=== PATIENT | female | born 1935 | race Caucasian/White ===

== ENCOUNTER 2016-12-01 08:01 | Inpatient (IN) | payer OTHER ==
[~2016-12-01] VITALS: Ht 154.9 cm; Wt 53.7 kg
[~2016-12-01 08:01] MED LIST: ASPI-232 PO; CINN1CAP2 PO; CYAN10005 PO; GLIP-197 PO; HYDR25TA5 PO; LOSA1TAB PO; PLN/10 PO; VITBC PO
[2016-12-01] MEDS ORDERED: CHOL1000 PO (08:24)
[2016-12-01] MEDS ORDERED: SODIUM CHLORIDE 0.9% 1000ML 1,000 ML IV STA (09:09)
--- NOTE | 2016-12-01 09:29 | DIAGNOSTIC IMAGING REPORT ---
CHEST ONE VIEW PORTABLE CLINICAL HISTORY: EVALUATE WEAKNESS dyspnea COMPARISON STUDY: 09/04/2013 FINDINGS: Unchanging left suprahilar nodularity. Lungs are considered clear. There are no focal infiltrates. Diaphragms smooth. IMPRESSION: No acute process. Chronic change. Electronically signed by: Rubens Aguillon M.D. 12/01/2016 9:27 AM Dictated Date/Time: 12/01/2016 9:26 AM
[2016-12-01 09:35] LABS: BASO % 0.6 %; BASO ABS # 0.02 K/uL (0-0.2); COMPLETE YES; EOS % 0.3 %; HEMATOCRIT 39.9 % (37-47); IG% 0.3 %; LYMPH % 12.5 %; LYMPH ABS # 0.41 K/uL (1.2-3.4); MEAN CELL VOLUME 86.4 fL (80-100); MEAN CORPUSCULAR HEMOGLOBIN 29.7 pg (25-34); MEAN CORPUSCULAR HGB CONC 34.3 g/dl (32-36); MEAN PLATELET VOLUME 9.7 fL (7.4-10.4); MONO % 16.8 %; NEUT % 69.5 %; PLATELET COUNT 160 K/uL (130-400); RED BLOOD COUNT 4.62 M/uL (4.2-5.4); WHITE BLOOD COUNT 3.28 K/uL (4.8-10.8)
[2016-12-01 09:43] LABS: INR 1.1 (0.9-1.1); PARTIAL THROMBOPLASTIN RATIO 1.1; PROTHROMBIN TIME (PATIENT) 11.3 SECONDS (9.0-12.0)
[2016-12-01 10:01] LABS: BUN/CREATININE RATIO 10.8 (10-20); CALCIUM 8.6 mg/dl (8.5-10.1); CREATININE 0.86 mg/dl (0.60-1.20); POTASSIUM 3.8 mmol/L (3.5-5.1)
[2016-12-01 10:13] LABS: CKMB/CK RATIO 2.1 (0-3.0); THYROID STIMULATING HORMONE 1.99 uIu/ml (0.300-4.500)
[2016-12-01] MEDS ORDERED: ASPIRIN 81 MG CHEW PO STA (10:17)
[2016-12-01 10:23] LABS: URINE APPEARANCE CLEAR (CLEAR); URINE BILIRUBIN NEG (NEG); URINE COLOR YELLOW; URINE NITRITE NEG (NEG); URINE PH 7.5 (4.5-7.5); URINE SPECIFIC GRAVITY 1.011 (1.000-1.030); UROBILINOGEN NEG (NEG)
[2016-12-01 10:28] LABS: MANUAL MICROSCOPIC REQUIRED? NO; REVIEW REQ? NO
[2016-12-01] MEDS ORDERED: OMEP20CA9 PO (10:59)
[2016-12-01] MEDS ORDERED: FELO5TAB PO (10:59)
[2016-12-01] MEDS ORDERED: NITROGLYCERIN 0.4 MG SL PER TAB CHARGE SL PRN (11:00)
[2016-12-01] MEDS ORDERED: ONDANSETRON INJ 2 MG/ML 2 ML VIAL IV PRN (11:00)
[2016-12-01] MEDS ORDERED: DEXTROSE 50% 50 ML SYR IV PRN (11:15)
[2016-12-01] MEDS ORDERED: GLUCAGON FOR INJ 1 MG VIAL SQ PRN (11:15)
[2016-12-01] MEDS ORDERED: GLUCOSE 10 TABS/TUBE PO PRN (11:15)
[2016-12-01] MEDS ORDERED: GLUCOSE 40% GEL 15 GM TUBE PO PRN (11:15)
--- NOTE | 2016-12-01 11:43 | History and Physical ---
History & Physical Date & Time of Service: Dec 01, 2016 at 11:14 Chief Complaint: Back And Neck Pain/ Below Ribs Primary Care Physician: Mary Oneill M.D. History of Present Illness Source: patient, family, clinic records, hospital records Patient seen and examined. 81 year old female with PMHx of DM2, HTN, CKD stage 3 , presents to the ED complaining of several episodes of upper back pain over the last 1-2 days. Patient reports she has been intermittently getting back pain between the shoulder blades. It would last for around a half hour and then resolved spontaneously. She reports it "just hurts" and rates the pain as a 6/ 10. This morning she had associated BL arm pain so she proceeded to the ED for further evaluation. By the time she arrived the pain had resolved and she is resting comfortably. She reports a chronic cough over the last year with worsening clear sputum production. She reports pain under her ribs. She denies fevers, chills, URI symptoms, chest pain, SOB, palpitations, nausea, vomiting, diarrhea, dysuria, calf pain, edema, dizziness, diaphoresis, syncope. She takes aspirin daily. She took all of her medications this morning. She denies history of CAD. In the ED VS are stable, EKG is nonischemic, CXR is negative. Troponin is 0.5. She received aspirin and is resting comfortably. She will be observed for further workup and treatment. Past Medical/Surgical History Medical Problems: (1) Benign hypertension Status: Chronic (2) CKD (chronic kidney disease), stage III Status: Chronic (3) Diabetes mellitus type 2 Status: Chronic (4) GERD (gastroesophageal reflux disease) Status: Chronic Surgical Problems: (1) H/O colonoscopy Status: Chronic (2) H/O wisdom tooth extraction Status: Chronic (3) History of tonsillectomy Status: Chronic Family History FH: cancer FH: heart disease FH: multiple endocrine neoplasia (MEN) syndrome Social History Smoking Status: Never Smoker Drug Use: none Marital Status: Housing status: lives with family Occupational Status: retired Immunizations History of Influenza Vaccine: No History of Tetanus Vaccine?: UTD History of Pneumococcal: Yes History of Hepatitis B Vaccine: Unknown Allergies Coded Allergies: Influenza Vaccine Live (Verified Allergy, Unknown, RASH, 12/01/16) Home Medications Scheduled Aspirin (Aspir-81), 81 MG PO DAILY Cholecalciferol (Vitamin D3), 1 TAB PO DAILY Cyanocobalamin (Vitamin B-12), 2,000 MCG PO DAILY Felodipine (Plendil Er), 1 TAB PO DAILY Glipizide (Glipizide Er), 5 MG PO DAILY Hydrochlorothiazide (Hydrochlorothiazide), 12.5 MG PO DAILY Losartan Potassium (Cozaar), 25 MG PO DAILY Omeprazole (Prilosec), 20 MG PO DAILY Vitamin B Complex (Vitamin B Complex), 1 TABLET PO DAILY Review of Systems See above for pertinent positives & negatives. A total of 10 systems reviewed and were otherwise negative. Physical Exam Vital Signs Date Time Temp Pulse Resp B/P Pulse Ox O2 Delivery O2 Flow Rate FiO2 12/01/16 10:25 92 25 146/76 95 Room Air 12/01/16 09:40 88 12/01/16 09:33 85 22 125/66 94 Room Air 12/01/16 09:31 94 Room Air 12/01/16 08:05 36.4 99 18 146/63 95 Room Air General Appearance: + pertinent finding (Pleasant WD/WN 81 year old female lying in bed in NAD with at bedside ) Head: normocephalic, atraumatic Eyes: PERRL, EOMI, sclerae normal ENT: hearing grossly normal, pharynx normal Neck: no adenopathy, no JVD Respiratory/Chest: chest non-tender, lungs clear, normal breath sounds, no respiratory distress, no accessory muscle use Cardiovascular: regular rate, rhythm, no edema, no gallop, no JVD, no murmur, normal peripheral pulses Abdomen/GI: normal bowel sounds, non tender, soft Back: normal inspection (nontender to palpation ), no CVA tenderness, no muscle spasm, normal range of motion Extremities/Musculoskelatal: no calf tenderness, normal capillary refill, no pedal edema Neurologic/Psych: alert, oriented x 3, + pertinent finding (no focal deficits ) Skin: normal color, warm/dry, no rash Lymphatic: no adenopathy Diagnostics Laboratory Results Results Past 24 Hours Test 12/01/16 09:20 Range/Units White Blood Count 3.28 4.8-10.8 K/uL Red Blood Count 4.62 4.2-5.4 M/uL Hemoglobin 13.7 12.0-16.0 g/dL Hematocrit 39.9 37-47 % Mean Corpuscular Volume 86.4 80-100 fL Mean Corpuscular Hemoglobin 29.7 25-34 pg Mean Corpuscular Hemoglobin Concent 34.3 32-36 g/dl Platelet Count 160 130-400 K/uL Mean Platelet Volume 9.7 7.4-10.4 fL Neutrophils (%) (Auto) 69.5 % Lymphocytes (%) (Auto) 12.5 % Monocytes (%) (Auto) 16.8 % Eosinophils (%) (Auto) 0.3 % Basophils (%) (Auto) 0.6 % Neutrophils # (Auto) 2.28 1.4-6.5 K/uL Lymphocytes # (Auto) 0.41 1.2-3.4 K/uL Monocytes # (Auto) 0.55 0.11-0.59 K/uL Eosinophils # (Auto) 0.01 0-0.5 K/uL Basophils # (Auto) 0.02 0-0.2 K/uL RDW Standard Deviation 42.6 36.4-46.3 fL RDW Coefficient of Variation 13.5 11.5-14.5 % Immature Granulocyte % (Auto) 0.3 % Immature Granulocyte # (Auto) 0.01 0.00-0.02 K/uL Prothrombin Time 11.3 9.0-12.0 SECONDS Prothromb Time International Ratio 1.1 0.9-1.1 Activated Partial Thromboplast Time 28.2 21.0-31.0 SECONDS Partial Thromboplastin Ratio 1.1 Urine Color YELLOW Urine Appearance CLEAR CLEAR Urine pH 7.5 4.5-7.5 Urine Specific [place] 1.011 1.000-1.030 Urine Protein NEG NEG Urine Glucose (UA) NEG NEG Urine Ketones 1+ NEG Urine Occult Blood NEG NEG Urine Nitrite NEG NEG Urine Bilirubin NEG NEG Urine Urobilinogen NEG NEG Urine Leukocyte Esterase TRACE NEG Urine WBC (Auto) 1-5 0-5 /hpf Urine RBC (Auto) 0-4 0-4 /hpf Urine Hyaline Casts (Auto) 0 0-5 /lpf Urine Epithelial Cells (Auto) 10-20 0-5 /lpf Urine Bacteria (Auto) 1+ NEG Sodium Level 131 136-145 mmol/L Potassium Level 3.8 3.5-5.1 mmol/L Chloride Level 95 98-107 mmol/L Carbon Dioxide Level 29 21-32 mmol/L Anion Gap 7.0 3-11 mmol/L Blood Urea Nitrogen 9 7-18 mg/dl Creatinine 0.86 0.60-1.20 mg/dl Est Creatinine Clear Calc Drug Dose 40.0 ml/min Estimated GFR () 74.5 Estimated GFR (Non- 64.3 BUN/Creatinine Ratio 10.8 10-20 Random Glucose 204 70-99 mg/dl Calcium Level 8.6 8.5-10.1 mg/dl Magnesium Level 2.0 1.8-2.4 mg/dl Total Bilirubin 0.4 0.2-1 mg/dl Direct Bilirubin 0.1 0-0.2 mg/dl Aspartate Amino Transf (AST/SGOT) 55 15-37 U/L Alanine Aminotransferase (ALT/SGPT) 55 12-78 U/L Alkaline Phosphatase 98 45-117 U/L Total Creatine Kinase 107 26-192 U/L Creatine Kinase MB 2.2 0.5-3.6 ng/ml Creatine Kinase MB Ratio 2.1 0-3.0 Troponin I 0.568 0-0.045 ng/ml Total Protein 6.6 6.4-8.2 gm/dl Albumin 3.4 3.4-5.0 gm/dl Lipase 215 73-393 U/L Thyroid Stimulating Hormone (TSH) 1.990 0.300-4.500 uIu/ml Microbiology Results 12/01/16 Urine Culture, Received Pending Diagnostic Radiology CXR Per radiologist read: IMPRESSION: No acute process. Chronic change. EKG NSR with PACs 80 BPm, RBBB, Qtc 470 Impression Assessment and Plan 81 year old female presents to the ED complaining of intermittent upper back pain x 2 days with radiation to BL arms. Troponin 0.5 ELEVATED TROPONIN -Observation in tele -Troponin 0.568, EKG nonischemic -Presents with pain between shoulder blades with radiation to BL arm -R/O ACS, r/o aortic dissection Risk factors: Age, DM2, HTN, family history -CT chest to r/o dissection -Serial Chidi, EKGs -Check Echo to r/o heart wall motion abnormality -Continue Aspirin daily -Nitro prn -Lipitor ordered for plaque stabilization -A1c, Lipid panel in AM -Cardiology consult for further input -CBC, PRP, Mg in AM DM2 -hold glipizide -update A1c -SSI coverage HTN -stable -continue Losartan, felodipine -monitor in tele CKD STAGE 3 -crea stable -follow PRP -avoid nephrotoxic agents as able GERD -continue PPI DVT PROPHYLAXIS: SCDs until CT is completed CODE STATUS: FULL CODE per my discussion with the patient DISPO:observation pending further workup Patient seen in collaboration with Dr. Seugndo ATTENDING ADDENDUM care coordinated with GLADYS Resendiz please refer to her notes for full details, I agree with her notes patient seen and examined, records reviewed by myself as well on exam, patient seen resting , sitting up in bed, comfortable denies back pain during the time of exam no chest pain, dyspnea, dizziness, nausea per patient's family, around 2 days ago, her HR was found to be in the 150s, but patient was apparently asymptomatic, systolic BP 140s no other symptoms VS noted and reviewed oriented x 3, not in distress, speaks in sentences with no effort nor accessory muscle use normal rate, regular rhythm, no murmurs clear breath sounds bilaterally back: no tenderness, swelling, warmth non distended, soft, nontender no bipedal edema, erythema, warmth no neuro deficits trop 0.5 Na 131 EKG: No signs of acute ischemia ASSESSMENT/PLAN> 81 year old female with history of DM, HTN presenting with upper back pain episodes and mild troponin elevation of 0.5 UPPER BACK PAIN R/O AORTIC DISSECTION CT angio IV fluids MILD TROPONIN ELEVATION EKG no acute ischemia check serial cardiac markers Echo EPISODE OF TACHYCARDIA per family, machine reading was 150s patient denies dizziness, palpitations, chest pain, dyspnea episodes monitor in Tele other diagnoses and plan of care as per GLADYS Segundo MD VTE Prophylaxis VTE Risk Assessment Done? Y/N: Yes Risk Level: Moderate
[2016-12-01] MEDS ORDERED: OPTIRAY 320 IV PRN (12:30)
--- NOTE | 2016-12-01 12:31 | DIAGNOSTIC IMAGING REPORT ---
Study: CT chest combination HISTORY: Chest pain FINDINGS: Pre and postcontrast administration evaluation of the pulmonary arterial vasculature as well as thoracic aorta shows mild atherosclerotic change. There is no evidence for aneurysm or dissection. There are no significant filling defects within the pulmonary arterial vasculature. There is moderate degenerative change of the thoracic spine. There is no compression deformity. Lungs are considered generally clear. Minimal basilar dependent atelectasis. IMPRESSION: 1. Minimal atherosclerotic change thoracic aorta.. 2. No evidence for aneurysm or dissection. 3. No evidence for pulmonary embolus. 4. Lungs are clear. Electronically signed by: Rubens Aguillon M.D. 12/01/2016 12:30 PM Dictated Date/Time: 12/01/2016 12:26 PM
[2016-12-01] MEDS ORDERED: IV FLUIDS COMPLETED PRN (12:45)
[2016-12-01 13:00] VITALS: BP 148/76; PULSE 77; TEMP 36.8; O2SAT 98; Ht 154.9 cm; Wt 53.7 kg
[2016-12-01] MEDS: ATORVASTATIN 40 MG TAB PO SCH (13:30)
--- NOTE | 2016-12-01 15:19 | EMERGENCY ROOM VISIT NOTE ---
History Report prepared by [place]: Bettina Magdaleno Under the Supervision of: Dr. Emil Petersen M.D. First contact with patient: 09:01 Chief Complaint: BACK PAIN Stated Complaint: BACK AND NECK PAIN/ BELOW RIBS History of Present Illness The patient is a 81 year old female who presents to the Emergency Room with complaints of intermittent upper back pain that began prior to arrival. She currently rates her discomfort as a 9/10 in severity. The patient states that her back pain comes and goes, and additionally notes abdominal pain. She states that she has noticed pain in her ribs and in between her shoulder blades as well. The patient states that she has had a persistent productive cough for the past several days. She states that she brings up thick white sputum. The patient states that eating worsens her cough. She notes bilateral arm pain. The patient denies any history of heart problems or pneumonia. Pt denies LOC, headache, fevers, chills, diaphoresis, visual changes, neck pain, chest pain, breathing difficulties, nausea, vomiting, melena, hematochezia, urinary symptoms , numbness, weakness, lymphadenopathy, rash, or other complaints. Source of History: patient Onset: prior to arrival Position: back (upper) Symptom Intensity: 9/10 Timing: intermittent Associated Symptoms: + abdominal pain, + cough Note: Associated Symptoms: rib pain, pain between shoulder blades, bilateral arm pain Review of Systems See HPI for pertinent positives and negatives. A total of ten systems were reviewed and were otherwise negative. Past Medical & Surgical Medical Problems: (1) Benign hypertension (2) CKD (chronic kidney disease), stage III (3) Diabetes mellitus type 2 (4) GERD (gastroesophageal reflux disease) Surgical Problems: (1) H/O colonoscopy (2) H/O wisdom tooth extraction (3) History of tonsillectomy Family History Patient reports no known family medical history. Social History Smoking Status: Never Smoker Alcohol Use: none Drug Use: none Marital Status: Housing Status: lives with family Occupation Status: retired Current/Historical Medications Scheduled Aspirin (Aspir-81), 81 MG PO DAILY Cholecalciferol (Vitamin D3), 1 TAB PO DAILY Cyanocobalamin (Vitamin B-12), 2,000 MCG PO DAILY Felodipine (Plendil Er), 1 TAB PO DAILY Glipizide (Glipizide Er), 5 MG PO DAILY Hydrochlorothiazide (Hydrochlorothiazide), 12.5 MG PO DAILY Losartan Potassium (Cozaar), 25 MG PO DAILY Omeprazole (Prilosec), 20 MG PO DAILY Vitamin B Complex (Vitamin B Complex), 1 TABLET PO DAILY Allergies Coded Allergies: Influenza Vaccine Live (Verified Allergy, Unknown, RASH, 12/01/16) Physical Exam Vital Signs Date Time Temp Pulse Resp B/P Pulse Ox O2 Delivery O2 Flow Rate FiO2 12/01/16 10:25 92 25 146/76 95 Room Air 12/01/16 09:40 88 12/01/16 09:33 85 22 125/66 94 Room Air 12/01/16 09:31 94 Room Air 12/01/16 08:05 36.4 99 18 146/63 95 Room Air Physical Exam GENERAL: Awake, alert, well-appearing, in no distress HENT: Normocephalic, atraumatic. Oropharynx unremarkable. EYES: Normal conjunctiva. Sclera non-icteric. NECK: Supple. No nuchal rigidity. FROM. No JVD. RESPIRATORY: Clear to auscultation. CARDIAC: Regular rate, normal rhythm. Extremities warm and well perfused. Pulses equal. ABDOMEN: Soft, non-distended. No tenderness to palpation. No rebound or guarding. No masses. RECTAL: Deferred. MUSCULOSKELETAL: Tender in right trapezius. Chest examination reveals no tenderness. The back is symmetrical on inspection without obvious abnormality. There is no CVA tenderness to palpation. No joint edema. LOWER EXTREMITIES: Calves are equal size bilaterally and non-tender. No edema. No discoloration. NEURO: Normal sensorium. No sensory or motor deficits noted. SKIN: No rash or jaundice noted. Medical Decision & Procedures ER Provider Diagnostic Interpretation: X-ray: Per my interpretation, radiologist review. CHEST ONE VIEW PORTABLE CLINICAL HISTORY: EVALUATE WEAKNESS dyspnea COMPARISON STUDY: 09/04/2013 FINDINGS: Unchanging left suprahilar nodularity. Lungs are considered clear. There are no focal infiltrates. Diaphragms smooth. IMPRESSION: No acute process. Chronic change. Electronically signed by: Rubens Aguillon M.D. 12/01/2016 9:27 AM Dictated Date/Time: 12/01/2016 9:26 AM Laboratory Results 12/01/16 09:20 Red Blood Count 4.62, Mean Corpuscular Volume 86.4, Mean Corpuscular Hemoglobin 29.7, Mean Corpuscular Hemoglobin Concent 34.3, Mean Platelet Volume 9.7, Neutrophils (%) (Auto) 69.5, Lymphocytes (%) (Auto) 12.5, Monocytes (%) (Auto) 16.8, Eosinophils (%) (Auto) 0.3, Basophils (%) (Auto) 0.6, Neutrophils # (Auto ) 2.28, Lymphocytes # (Auto) 0.41, Monocytes # (Auto) 0.55, Eosinophils # (Auto ) 0.01, Basophils # (Auto) 0.02 12/01/16 09:20 Test 12/01/16 09:20 White Blood Count 3.28 K/uL (4.8-10.8) Red Blood Count 4.62 M/uL (4.2-5.4) Hemoglobin 13.7 g/dL (12.0-16.0) Hematocrit 39.9 % (37-47) Mean Corpuscular Volume 86.4 fL (80-100) Mean Corpuscular Hemoglobin 29.7 pg (25-34) Mean Corpuscular Hemoglobin Concent 34.3 g/dl (32-36) Platelet Count 160 K/uL (130-400) Mean Platelet Volume 9.7 fL (7.4-10.4) Neutrophils (%) (Auto) 69.5 % Lymphocytes (%) (Auto) 12.5 % Monocytes (%) (Auto) 16.8 % Eosinophils (%) (Auto) 0.3 % Basophils (%) (Auto) 0.6 % Neutrophils # (Auto) 2.28 K/uL (1.4-6.5) Lymphocytes # (Auto) 0.41 K/uL (1.2-3.4) Monocytes # (Auto) 0.55 K/uL (0.11-0.59) Eosinophils # (Auto) 0.01 K/uL (0-0.5) Basophils # (Auto) 0.02 K/uL (0-0.2) RDW Standard Deviation 42.6 fL (36.4-46.3) RDW Coefficient of Variation 13.5 % (11.5-14.5) Immature Granulocyte % (Auto) 0.3 % Immature Granulocyte # (Auto) 0.01 K/uL (0.00-0.02) Prothrombin Time 11.3 SECONDS (9.0-12.0) Prothromb Time International Ratio 1.1 (0.9-1.1) Activated Partial Thromboplast Time 28.2 SECONDS (21.0-31.0) Partial Thromboplastin Ratio 1.1 Urine Color YELLOW Urine Appearance CLEAR (CLEAR) Urine pH 7.5 (4.5-7.5) Urine Specific [place] 1.011 (1.000-1.030) Urine Protein NEG (NEG) Urine Glucose (UA) NEG (NEG) Urine Ketones 1+ (NEG) Urine Occult Blood NEG (NEG) Urine Nitrite NEG (NEG) Urine Bilirubin NEG (NEG) Urine Urobilinogen NEG (NEG) Urine Leukocyte Esterase TRACE (NEG) Urine WBC (Auto) 1-5 /hpf (0-5) Urine RBC (Auto) 0-4 /hpf (0-4) Urine Hyaline Casts (Auto) 0 /lpf (0-5) Urine Epithelial Cells (Auto) 10-20 /lpf (0-5) Urine Bacteria (Auto) 1+ (NEG) Anion Gap 7.0 mmol/L (3-11) Est Creatinine Clear Calc Drug Dose 40.0 ml/min Estimated GFR () 74.5 Estimated GFR (Non- 64.3 BUN/Creatinine Ratio 10.8 (10-20) Calcium Level 8.6 mg/dl (8.5-10.1) Magnesium Level 2.0 mg/dl (1.8-2.4) Total Bilirubin 0.4 mg/dl (0.2-1) Direct Bilirubin 0.1 mg/dl (0-0.2) Aspartate Amino Transf (AST/SGOT) 55 U/L (15-37) Alanine Aminotransferase (ALT/SGPT) 55 U/L (12-78) Alkaline Phosphatase 98 U/L (45-117) Total Creatine Kinase 107 U/L (26-192) Creatine Kinase MB 2.2 ng/ml (0.5-3.6) Creatine Kinase MB Ratio 2.1 (0-3.0) Troponin I 0.568 ng/ml (0-0.045) Total Protein 6.6 gm/dl (6.4-8.2) Albumin 3.4 gm/dl (3.4-5.0) Lipase 215 U/L (73-393) Thyroid Stimulating Hormone (TSH) 1.990 uIu/ml (0.300-4.500) Laboratory results reviewed by me Medications Administered Medications (Trade) Dose Ordered Sig/Clark Route Start Time Stop Time Status Last Admin Dose Admin Sodium Chloride (Nss 1000ml) 1,000 ml @ 125 mls/hr Q8H STAT IV 12/01/16 09:09 12/01/16 13:16 DC 12/01/16 09:30 125 MLS/HR Aspirin (Aspirin Chew) 324 mg NOW STAT PO 12/01/16 10:17 12/01/16 10:18 DC 12/01/16 10:25 324 MG ECG Indication: abdominal pain, back/shoulder pain Rate (beats per minute): 80 Rhythm: sinus rhythm Findings: PAC, RBBB, no acute ischemic change, no ectopy ED Course 0908: The patient was evaluated in room B9. A complete history and physical exam was performed. 0909: Ordered Sodium Chloride 1000 ml @ 125 mls/hr IV. 1017: Ordered Aspirin 324 mg PO. 1018: I reevaluated the patient and she is resting comfortably. I discussed the exam findings with her and I discussed the treatment plan. She verbalized complete understanding and agreement. She will be evaluated for further treatment. 1020: I discussed the patients case with Brian Ricci PA-C. She is going to evaluate the patient for further treatment. Medical Decision Triage Nursing notes reviewed. The patient's presentation and history were concerning for back pain and arm pain Etiologies such as musculoskeletal, cardiac ischemia, aortic dissection, pulmonary embolism, pneumonia, pneumothorax, musculoskeletal, infections, gastrointestinal, as well as others were entertained. The patient was evaluated. She was pain-free. She had a cough. Her chest x- ray was unremarkable. ECG was nonischemic. Her CBC, chemistry panel, LFTs and lipase were negative. Her troponin was elevated. This was very concerning about possible myocardial ischemic event. The patient was given aspirin. She was hydrated. Consultation was made with internal medicine and she was evaluated for further treatment. The chart was completed utilizing [employer] voice recognition software. Grammatical errors, random word insertions, pronoun errors, and incomplete sentences are an occasional consequence of this system due to software limitations, ambient noise, and hardware issues. Any formal questions or concerns about the content, text, or information contained within the body of this dictation should be directly addressed to the physician for clarification. Consults Time Called: 1018 Consulting Physician: Brian Ricci PA-C Returned Call: 1020 I discussed the patients case with Brian Ricci PA-C. She is going to evaluate the patient for further treatment. Impression Primary Impression: Non-ST elevation WI (NSTEMI) Additional Impression: Back pain Scribe Attestation The scribe's documentation has been prepared under my direction and personally reviewed by me in its entirety. I confirm that the note above accurately reflects all work, treatment, procedures, and medical decision making performed by me. Departure Information Dispostion Being Evaluated By Hospitalist Referrals No Doctor, Assigned (PCP) Problem Qualifiers
[2016-12-01 15:43] VITALS: BP 132/69; PULSE 75; TEMP 37.3; O2SAT 96
[2016-12-01 16:34] LABS: CKMB/CK RATIO 1.8 (0-3.0)
[2016-12-01 20:00] VITALS: BP 143/76; PULSE 83; TEMP 37.5; O2SAT 96
--- NOTE | 2016-12-01 20:45 | Cardiology Consultation ---
Cardiology Consultation Date of Consultation: Dec 01, 2016 History of Present Illness Dilcia Ruiz is a 81-year-old female seen in cardiology consultation per the request: Astrid KANG for the evaluation of back discomfort and elevated troponin. The patient does not follow routinely with cardiology. She had been seen as an inpatient by Dr. Cheung and 2013 due to concerns of a mitral valve abnormality and very mild troponin elevation. She underwent an EGD to 2 history of esophageal stricture and then transesophageal echocardiogram which revealed mitral valve calcification without other significant abnormality. The patient describes that she was feeling well 2 days prior to admission she cleaned her house and her description it sounds as though she did a significant amount of physical exertion. That night she had mild back discomfort but was not too bad. The next day she did not feel any significant illness. The night prior to hospitalization she woke up at 2:30 in the morning with a severe back ache between her shoulder blades. Her family subsequent prompt her to go to the emergency department. Her initial vital signs performed on 12/01/16 at 8:05 AM revealed a blood pressure of 146/63. Her heart rate is 99 bpm. Her had checked her heart rate and blood pressure with a home blood pressure cuff and her blood pressure was relatively stable through the night. He did note that 2 of her heart rate readings however or up to the 150 beat per minute range. Due to the nature of her discomfort, she underwent a CT angiogram aortic dissection study that revealed no evidence of aortic aneurysm or dissection. No evidence of pulmonary embolism. Minimal atherosclerotic changes were noted in the thoracic aorta. I reviewed the images independently, and she does have diffuse coronary artery calcification noted on the noncontrast study. The patient was found to have a mild troponin elevation of 0.568 and 0.584 respectively with normal CPK and normal MB values. Additional troponin level is due at 2120 hrs. EKG on arrival revealed sinus rhythm with right bundle branch block, and a repeat tracing on 12/01/16 at 1754 revealed continued normal sinus rhythm with right bundle branch block. T-wave inversions were noted in leads V1 and V2. The right bundle branch block and T-wave inversion changes are chronic dating back to prior tracings from 2013. During my assessment the patient states that she felt well. She has had no additional back discomfort all day long. She denies any chest discomfort she denies shortness of breath she denies abdominal discomfort. History PAST MEDICAL HISTORY: 1. Hypertension 2. Chronic kidney disease 3. Type 2 diabetes mellitus 4. Gastroesophageal reflux disease PAST SURGICAL HISTORY: 1. Transesophageal echocardiogram performed in 2013 2. Esophagus she'll stricture with past EGD and dilatation 3. [place] tooth extraction 4. Tonsillectomy is variable FAMILY HISTORY: Family history of heart disease with her father having had heart disease but she does not have the details SOCIAL HISTORY: She is a nonsmoker, she lives through family, she is retired Review Of Systems See above for pertinent positives & negatives. A total of 10 systems reviewed and were otherwise negative. Allergies Coded Allergies: Influenza Vaccine Live (Verified Allergy, Unknown, RASH, 12/01/16) Medications Reported Home Medications Medications Dose Route/Sig Max Daily Dose Days Date Category Plendil Er (Felodipine) 5 Mg Tab 1 Tab PO DAILY 30 12/01/16 Reported Prilosec (Omeprazole) 20 Mg Cap 20 Mg PO DAILY 12/01/16 Reported Vitamin D3 (Cholecalciferol) 1,000 Unit Tab 1 Tab PO DAILY 90 12/01/16 Reported Glipizide Er (Glipizide) 5 Mg Tab 5 Mg PO DAILY 07/05/14 Reported Hydrochlorothiazide 25 Mg Tab 12.5 Mg PO DAILY 07/05/14 Reported Vitamin B Complex 1 Tab Tab 1 Tablet PO DAILY 06/04/13 Reported Vitamin B-12 (Cyanocobalamin) 1,000 Mcg Tab 2,000 Mcg PO DAILY 06/04/13 Reported Aspir-81 (Aspirin) 81 Mg Tab 81 Mg PO DAILY 06/04/13 Reported Cozaar (Losartan Potassium) 25 Mg Tab 25 Mg PO DAILY 06/04/13 Reported Physical Exam Vital Signs (Last 8hrs): Last 8 Hrs Date Time Temp Pulse Resp B/P Pulse Ox O2 Delivery O2 Flow Rate FiO2 12/01/16 20:00 Room Air 12/01/16 20:00 37.5 83 18 143/76 96 Room Air 12/01/16 16:00 Room Air 12/01/16 15:43 37.3 75 20 132/69 96 Room Air 12/01/16 13:00 36.8 77 16 148/76 98 Room Air 12/01/16 12:53 75 22 144/76 97 General Appearance: Alert and Oriented x3. NAD. Head: Normocephalic Atraumatic. Eyes: PERRLA, EOMI, conjunctiva and sclera clear Neck: Supple. No carotid bruits noted. No JVD. No HJD. Respiratory: Breath sounds clear to auscultation bilaterally. No w/r/r. Cardiovascular: Reg rate and rhythm. S1 and S2 noted. No murmurs, rubs, gallops. PMI non displace. Abdomen: Normal bowel sounds, soft nontender. no abdominal bruits. Extremities: No edema, no clubbing or cyanosis. distal pulses 2/4 bilaterally. Neuro: No focal deficits. Psychiatric: Normal affect. Data Last 24 Hours Test 12/01/16 09:20 12/01/16 15:35 12/01/16 16:43 White Blood Count 3.28 K/uL Red Blood Count 4.62 M/uL Hemoglobin 13.7 g/dL Hematocrit 39.9 % Mean Corpuscular Volume 86.4 fL Mean Corpuscular Hemoglobin 29.7 pg Mean Corpuscular Hemoglobin Concent 34.3 g/dl Platelet Count 160 K/uL Mean Platelet Volume 9.7 fL Neutrophils (%) (Auto) 69.5 % Lymphocytes (%) (Auto) 12.5 % Monocytes (%) (Auto) 16.8 % Eosinophils (%) (Auto) 0.3 % Basophils (%) (Auto) 0.6 % Neutrophils # (Auto) 2.28 K/uL Lymphocytes # (Auto) 0.41 K/uL Monocytes # (Auto) 0.55 K/uL Eosinophils # (Auto) 0.01 K/uL Basophils # (Auto) 0.02 K/uL RDW Standard Deviation 42.6 fL RDW Coefficient of Variation 13.5 % Immature Granulocyte % (Auto) 0.3 % Immature Granulocyte # (Auto) 0.01 K/uL Prothrombin Time 11.3 SECONDS Prothromb Time International Ratio 1.1 Activated Partial Thromboplast Time 28.2 SECONDS Partial Thromboplastin Ratio 1.1 Urine Color YELLOW Urine Appearance CLEAR Urine pH 7.5 Urine Specific [place] 1.011 Urine Protein NEG Urine Glucose (UA) NEG Urine Ketones 1+ Urine Occult Blood NEG Urine Nitrite NEG Urine Bilirubin NEG Urine Urobilinogen NEG Urine Leukocyte Esterase TRACE Urine WBC (Auto) 1-5 /hpf Urine RBC (Auto) 0-4 /hpf Urine Hyaline Casts (Auto) 0 /lpf Urine Epithelial Cells (Auto) 10-20 /lpf Urine Bacteria (Auto) 1+ Sodium Level 131 mmol/L Potassium Level 3.8 mmol/L Chloride Level 95 mmol/L Carbon Dioxide Level 29 mmol/L Anion Gap 7.0 mmol/L Blood Urea Nitrogen 9 mg/dl Creatinine 0.86 mg/dl Est Creatinine Clear Calc Drug Dose 40.0 ml/min Estimated GFR () 74.5 Estimated GFR (Non- 64.3 BUN/Creatinine Ratio 10.8 Random Glucose 204 mg/dl Calcium Level 8.6 mg/dl Magnesium Level 2.0 mg/dl Total Bilirubin 0.4 mg/dl Direct Bilirubin 0.1 mg/dl Aspartate Amino Transf (AST/SGOT) 55 U/L Alanine Aminotransferase (ALT/SGPT) 55 U/L Alkaline Phosphatase 98 U/L Total Creatine Kinase 107 U/L 125 U/L Creatine Kinase MB 2.2 ng/ml 2.2 ng/ml Creatine Kinase MB Ratio 2.1 1.8 Troponin I 0.568 ng/ml 0.584 ng/ml Total Protein 6.6 gm/dl Albumin 3.4 gm/dl Lipase 215 U/L Thyroid Stimulating Hormone (TSH) 1.990 uIu/ml Bedside Glucose 126 mg/dl Imaging: CT as summarized in history of present illness EKG: As outlined in history of present illness Telemetry reviewed: Sinus rhythm Assessment & Plan Impression: 81-year-old female Midline back discomfort. Her troponin is mildly elevated with no acute EKG changes and she has had no ongoing symptoms. Is difficult to distinguish if she has had an episode of muscular skeletal back pain from overdoing it with her cleaning or if this was an anginal equivalent or She notes no exertional symptoms when she was doing her heavy cleaning. Her blood pressure appears stable and she arrived, but she did have hours of nagging discomfort. CT angiogram has excluded aortic dissection and pulmonary embolism, she does have significant coronary artery atherosclerosis. Recommendations: Continue to trend cardiac enzymes. Patient made nothing by mouth after midnight tonight, and depending upon how she feels and how her blood tests trend , will determine with the most prudent course of action is terms of further workup for myocardial ischemia either pharmacologic stress testing or cardiac catheterization. Recommend statin therapy given coronary atherosclerosis noted on CT.
[2016-12-01] MEDS ORDERED: HEPARIN SOD 5000 UNIT/0.5 ML CARP SQ SCH (21:00)
[2016-12-01] MEDS: INSULIN ASPART 100 UNITS/ML 3 ML PEN SC SCH ×2 (21:19→21:20)
[2016-12-01 22:44] LABS: CKMB/CK RATIO 1.1 (0-3.0)
[2016-12-01 23:47] VITALS: BP 148/71; PULSE 100; TEMP 38.2; O2SAT 95
[2016-12-01] MEDS: ACETAMINOPHEN 325 MG TAB PO PRN (23:54)
[2016-12-02 04:25] VITALS: BP 125/68; PULSE 56; TEMP 36.9; O2SAT 95
[2016-12-02 06:45] LABS: HEMATOCRIT 44.8 % (37-47); MEAN CELL VOLUME 85.5 fL (80-100); MEAN CORPUSCULAR HEMOGLOBIN 28.4 pg (25-34); MEAN CORPUSCULAR HGB CONC 33.3 g/dl (32-36); MEAN PLATELET VOLUME 9.9 fL (7.4-10.4); PLATELET COUNT 178 K/uL (130-400); RED BLOOD COUNT 5.24 M/uL (4.2-5.4); WHITE BLOOD COUNT 2.86 K/uL (4.8-10.8)
[2016-12-02] MEDS: INSULIN ASPART 100 UNITS/ML 3 ML PEN SC SCH ×4 (07:00→21:00)
[2016-12-02 07:23] LABS: BUN/CREATININE RATIO 15.1 (10-20); CALCIUM 8.7 mg/dl (8.5-10.1); CREATININE 0.98 mg/dl (0.60-1.20); MAGNESIUM 2.3 mg/dl (1.8-2.4); POTASSIUM 3.5 mmol/L (3.5-5.1)
[2016-12-02] MEDS ORDERED: PERFLUTREN LIPID MICROSPHERE (DEFINITY) IV ONE (07:25)
[2016-12-02 07:26] LABS: CHOLESTEROL/HDL RATIO 3.2
[2016-12-02 07:28] LABS: ESTIMATED AVERAGE GLUCOSE 157 mg/dl; HA1C FLAG Normal (Normal)
[2016-12-02] MEDS: ASPIRIN 81 MG ECTAB PO SCH (07:45)
[2016-12-02] MEDS: ATORVASTATIN 40 MG TAB PO SCH (07:45)
[2016-12-02] MEDS: CYANOCOBALAMIN 500 MCG TAB (VIT B-12) PO SCH (07:46)
[2016-12-02] MEDS: LOSARTAN POTASSIUM 25 MG TAB PO SCH (07:46)
[2016-12-02] MEDS: PANTOprazole SOD 40 MG TAB PO SCH (07:46)
[2016-12-02] MEDS: VITAMIN B COMPLEX TAB PO SCH (07:46)
[2016-12-02] MEDS: CHOLECALCIFEROL 1000 INTER.UNIT TAB PO SCH (07:47)
[2016-12-02] MEDS: FELODIPINE 5 MG TABCR PO SCH (07:48)
[2016-12-02] MEDS ORDERED: METOPROLOL TARTRATE 1 MG/ML VIAL IV STA (08:11)
[2016-12-02] MEDS ORDERED: METOPROLOL TARTRATE 1 MG/ML VIAL ONE (08:20)
[2016-12-02 08:56] VITALS: BP 123/77; PULSE 73; TEMP 37
--- NOTE | 2016-12-02 08:59 | Progress Note ---
Internal Med Progress Note Date of Service: Dec 02, 2016. Provider Documentation: SUBJECTIVE: Patient is seen and examined at bedside. Patient had Afib noted this morning but is asymptomatic. Denies any chest pain, palpitations, dizziness, nausea, SOB. Denies any history of bleeding. Offers no complaints. OBJECTIVE: Vital Signs-as noted below Physical Exam: General Appearance:Moderately built and nourished, no apparent distress Head: normocephalic, Atraumatic Eyes: normal inspection, EOMI, PERRLA Neck: supple, Trachea midline Respiratory/Chest: Normal breath sounds, CTA Cardiovascular: Irregularly Irregular, No murmur Abdomen/GI:Soft, Non tender, Bowel sounds present Extremities/Musculoskelatal:normal inspection, no edema Neurologic/Psych:AAOX3, grossly no focal neurological deficits Skin: normal color, warm Lab data as noted below. ASSESSMENT & PLAN: Afib with RVR: Presents with pain between shoulders radiating to bilateral arms No known history of afib Elevated troponin likely secondary to Afib CHADVASC2 score:5 S/P IV Lopressor, currently rate controlled Start IV heparin EKG: No signs of ischemia ECHO pending CT angiogram: No aortic dissection/PE but has severe CAD Appreciate Cardiology input ELEVATED TROPONIN CT angio: Severe CAD Troponin 0.568, EKG No signs of Ischemia ECHO: pending Continue Aspirin, Lipitor May need stress test Cardiology on board UTI Gram Negative bacilli on UA FU cultures Start on IV ceftriaxone Positive Influenza A: Start Tamiflu # 1/5 for 5 days DM II Hold glipizide A1c:7.1 ISS, accu checks while hospitalized HTN stable continue Losartan, felodipine Monitor CKD III Cr stable Monitor renal function Avoid nephrotoxic agents as able GERD continue PPI DVT PX: On IV heparin CODE STATUS: FULL CODE DISPOSITION: Continue monitoring in Telemetry Vital Signs: Date Time Temp Pulse Resp B/P Pulse Ox O2 Delivery O2 Flow Rate FiO2 12/02/16 12:29 37.8 65 16 107/49 95 Room Air 12/02/16 12:00 Room Air 12/02/16 08:56 37.0 73 20 123/77 Room Air 12/02/16 08:22 168 12/02/16 08:00 Room Air 12/02/16 04:25 36.9 56 18 125/68 95 Room Air 12/02/16 04:00 Room Air 12/02/16 00:00 Room Air 12/01/16 23:47 38.2 100 18 148/71 95 Room Air 12/01/16 20:00 Room Air 12/01/16 20:00 37.5 83 18 143/76 96 Room Air 12/01/16 16:00 Room Air 12/01/16 15:43 37.3 75 20 132/69 96 Room Air Lab Results: Results Past 24 Hours Test 12/01/16 15:35 12/01/16 16:43 12/01/16 20:42 12/01/16 21:40 Range/Units Total Creatine Kinase 125 140 26-192 U/L Creatine Kinase MB 2.2 1.5 0.5-3.6 ng/ml Creatine Kinase MB Ratio 1.8 1.1 0-3.0 Troponin I 0.584 0.532 0-0.045 ng/ml Bedside Glucose 126 120 70-90 mg/dl Test 12/02/16 06:10 12/02/16 07:03 12/02/16 09:33 12/02/16 10:45 Range/Units White Blood Count 2.86 4.44 4.8-10.8 K/uL Red Blood Count 5.24 4.91 4.2-5.4 M/uL Hemoglobin 14.9 14.4 12.0-16.0 g/dL Hematocrit 44.8 42.0 37-47 % Mean Corpuscular Volume 85.5 85.5 80-100 fL Mean Corpuscular Hemoglobin 28.4 29.3 25-34 pg Mean Corpuscular Hemoglobin Concent 33.3 34.3 32-36 g/dl RDW Standard Deviation 42.5 42.7 36.4-46.3 fL RDW Coefficient of Variation 13.6 13.6 11.5-14.5 % Platelet Count 178 157 130-400 K/uL Mean Platelet Volume 9.9 9.8 7.4-10.4 fL Sodium Level 134 136-145 mmol/L Potassium Level 3.5 3.5-5.1 mmol/L Chloride Level 97 98-107 mmol/L Carbon Dioxide Level 29 21-32 mmol/L Anion Gap 8.0 3-11 mmol/L Blood Urea Nitrogen 15 7-18 mg/dl Creatinine 0.98 0.60-1.20 mg/dl Est Creatinine Clear Calc Drug Dose 35.1 ml/min Estimated GFR () 63.6 Estimated GFR (Non- 54.9 BUN/Creatinine Ratio 15.1 10-20 Random Glucose 83 70-99 mg/dl Estimated Average Glucose 157 mg/dl Hemoglobin A1c 7.1 4.5-5.6 % Calcium Level 8.7 8.5-10.1 mg/dl Magnesium Level 2.3 1.8-2.4 mg/dl Triglycerides Level 126 0-150 mg/dl Cholesterol Level 154 0-200 mg/dl HDL Cholesterol 48 mg/dl LDL Cholesterol, Calculated 81 mg/dl VLDL Cholesterol, Calculated 25 mg/dl Cholesterol/HDL Ratio 3.2 Bedside Glucose 71 70-90 mg/dl Prothrombin Time 11.0 9.0-12.0 SECONDS Prothromb Time International Ratio 1.0 0.9-1.1 Activated Partial Thromboplast Time 31.1 21.0-31.0 SECONDS Partial Thromboplastin Ratio 1.2 Influenza Type A (RT-PCR) POS for Influ A NEG Influenza Type B (RT-PCR) Neg for Influ B NEG
[2016-12-02] MEDS ORDERED: POTASSIUM CHLORIDE 10 MEQ TABCR PO ONE (09:00)
--- NOTE | 2016-12-02 09:05 | ECHOCARDIOGRAM REPORT ---
*NOTICE TO RECEIVING [employer]ENCY This information is strictly Confidential and protected under [place] law. [place] law prohibits you from making any further disclosure of this information unless further disclosure is expressly permitted by the written consent of the person to whom it pertains or is authorized by law. A general authorization for the release of medical or other information is not sufficient for this purpose. Hospital accepts no responsibility if the information is made available to any other person, INCLUDING THE PATIENT. Interpretation Summary * Name: LUIS MANDEL Study Date: 12/02/2016 06:56 AM BP: 125/68 mmHg * Patient Location: C.2T\S\S232\S\1 HR: 82 * : 1935 (M/d/yyyy) Gender: Female Height: 61 in * Age: 81 yrs Ethnicity: [place] Weight: 117 lb * Ordering Physician: Rain Resendiz * Referring Physician: Self, Referred * Performed By: Harper Ackerman RCS * * Reason For Study: ELEVATED TROPONIN / BACK PAIN * BSA: 1.5 m2 * -- Conclusions -- * The left ventricular wall motion is normal. * The left ventricular cavity is small. * There is severe concentric left ventricular hypertrophy. * The LV Ejection Fraction = 65-70%. * Grade I diastolic dysfunction, (abnormal relaxation pattern). * There is severe mitral annular calcification. * There is a small to moderate loculated anterior and right lateral pericardial effusion. * There is no echocardiographic evidence of tamponade. Procedure Details * A complete two-dimensional transthoracic echocardiogram was performed (2D, M-mode, Doppler and color flow Doppler). * The study was technically difficult. * A contrast injection of Definity was performed to improve assessment of LV function. * Contrast was injected into an intravenous site in the right arm. * One vial of Definity ultrasound contrast was diluted in normal saline to a total volume of 10 ml. A total of '2' ml of solution was administered during imaging. * Lot # [id number] of Definity utilized for procedure. * Expiration date DEC 20. Left Ventricle * The left ventricular cavity is small. * There is severe concentric left ventricular hypertrophy. * Left ventricular systolic function is normal. * Ejection Fraction = 65-70%. * The left ventricular wall motion is normal. Right Ventricle * The right ventricle is normal in size and function. Atria * The left atrial size is normal. * Right atrial size is normal. * There is no evidence of atrial septal defect, but resolution does not allow assessment for a patent foramen ovale. Mitral Valve * There is severe mitral annular calcification. * There is no mitral valve stenosis. * Significant mitral regurgitation is absent. Tricuspid Valve * The tricuspid valve is normal. * There is no tricuspid stenosis. * Significant tricuspid regurgitation is absent. Aortic Valve * The aortic valve is not well visualized. * Aortic stenosis is absent. * There is no significant aortic regurgitation. Pulmonic Valve * The pulmonary valve is not well seen, but the Doppler examination is normal without significant regurgitation or stenosis. Great Vessels * The aortic root and proximal ascending aorta are normal sized. Pericardium/Pleural * There is a small lto moderate loculated anterior and right lateral pericardial effusion. Great Vessels * Normal inferior vena cava diameter and respiratory variation suggests normal central venous pressure. * Normal inferior vena cava size and collapsability with sniff indicates a normal right atrial pressure of 3 mmHg Left Ventricular Diastolic Function * Grade I diastolic dysfunction, (abnormal relaxation pattern). MMode 2D Measurements and Calculations IVSd 1.7 cm IVSs 1.9 cm LVIDd 3.2 cm LVIDs 2.7 cm LVPWd 1.5 cm LVPWs 1.3 cm IVS/LVPW 1.1 FS 14.0 % EDV(Teich) 39.8 ml ESV(Teich) 27.5 ml EF(Teich) 30.9 % EDV(cubed) 31.6 ml ESV(cubed) 20.1 ml EF(cubed) 36.4 % % IVS thick 11.5 % % LVPW thick -12.25 % LV mass(C)d 189.1 grams LV mass(C)dI 125.7 grams/m\S\2 LV mass(C)s 157.8 grams LV mass(C)sI 104.9 grams/m\S\2 SV(Teich) 12.3 ml SI(Teich) 8.2 ml/m\S\2 SV(cubed) 11.5 ml SI(cubed) 7.7 ml/m\S\2 LVOT diam 1.9 cm LVOT area 2.9 cm\S\2 Doppler Measurements and Calculations MV E max thor 82.5 cm/sec MV A max thor 111.1 cm/sec MV E/A 0.74 MV P1/2t max thor 97.7 cm/sec MV P1/2t 98.7 msec MVA(P1/2t) 2.2 cm\S\2 MV dec slope 290.1 cm/sec\S\2 MV dec time 0.35 sec Ao V2 max 137.7 cm/sec Ao max PG 7.6 mmHg Ao max PG (full) 4.9 mmHg ANNY(V,A) 1.7 cm\S\2 ANNY(V,D) 1.7 cm\S\2 LV V1 max PG 2.7 mmHg LV V1 max 82.0 cm/sec PA V2 max 163.6 cm/sec PA max PG 10.7 mmHg
[2016-12-02] MEDS ORDERED: AMIODARONE IV BOLUS / DRIP IV STA (09:17)
[2016-12-02 09:51] LABS: MEAN CELL VOLUME 85.5 fL (80-100); MEAN CORPUSCULAR HEMOGLOBIN 29.3 pg (25-34); MEAN PLATELET VOLUME 9.8 fL (7.4-10.4); PLATELET COUNT 157 K/uL (130-400); RED BLOOD COUNT 4.91 M/uL (4.2-5.4); WHITE BLOOD COUNT 4.44 K/uL (4.8-10.8)
[2016-12-02 09:55] LABS: MEAN CORPUSCULAR HGB CONC 34.3 g/dl (32-36)
[2016-12-02] MEDS: HEPARIN 25,000 UNIT/500ML D5W 500 ML IV PRN ×2 (10:00→18:28)
[2016-12-02] MEDS ORDERED: AMIODARONE / D5W 100 ML IV SCH (10:00)
[2016-12-02 10:01] LABS: PARTIAL THROMBOPLASTIN RATIO 1.2
[2016-12-02] MEDS ORDERED: AMIODARONE / D5W 200 ML IV SCH ×2 (10:15→16:15)
[2016-12-02 12:29] VITALS: BP 107/49; PULSE 65; TEMP 37.8; O2SAT 95
[2016-12-02] MEDS ORDERED: METOPROLOL TARTRATE 25 MG TAB PO ONE (12:51)
--- NOTE | 2016-12-02 12:51 | Cardiology Follow-Up ---
Subjective General Date of Service: Dec 02, 2016. Chief Complaint: follow up elevated troponin, new AF Pt evaluation today including: conversation w/ patient, conversation w/ family , physical exam History of Present Illness The patient is a 81 year old female seen in cardiology follow-up. Patient was noted to have atrial fibrillation with rapid ventricular rate this morning. She had no symptoms the exception of a sensation of dizziness. She continues to have a cough which per the family description when I discussed it with them last night was a chronic issue and not new. She received 5 mg of IV metoprolol but remained in atrial fibrillation I therefore ordered an amiodarone infusion. The patient has since converted from atrial fibrillation with rapid ventricular rate to sinus rhythm at 10:27 AM on 11/22/16. At present, sinus rhythm at 60 bpm as noted on telemetry. EKG this morning revealed sinus rhythm at 74 bpm with right bundle branch block. Allergies Coded Allergies: Influenza Vaccine Live (Verified Allergy, Unknown, RASH, 12/01/16) Social History Smoking Status: Never Smoker Hx Tobacco Use In Past Year?: No Hx Alcohol Use - Type And Amou: No Hx Substance Use - Type And Am: No Problem List Medical Problems: (1) Back pain Status: Acute (2) Non-ST elevation AK (NSTEMI) Status: Acute Physical Exam Vital Signs Last Vital Signs Documentation Date Time Temp Pulse Resp B/P Pulse Ox O2 Delivery O2 Flow Rate FiO2 12/02/16 12:29 37.8 65 16 107/49 95 Room Air Physical Exam Constitutional: Level of Distress: NAD Neck: supple Lungs: Auscultation: no wheezing, no rales/crackles Cardiovascular: Heart Auscultation: RRR, no murmurs Extremities: no edema Neurologic: Gait & Station: pertinent finding (no focal neuro deficits ) Assessment and Plan Assessment and Plan Summary transthoracic echocardiogram performed today 12/02/16 and reviewed independently by the undersigned: * -- Conclusions -- * The left ventricular wall motion is normal. * The left ventricular cavity is small. * There is severe concentric left ventricular hypertrophy. * The LV Ejection Fraction = 65-70%. * Grade I diastolic dysfunction, (abnormal relaxation pattern). * There is severe mitral annular calcification. * There is a small to moderate loculated anterior and right lateral pericardial effusion. * There is no echocardiographic evidence of tamponade. Impression: 1. Newly recognized paroxysmal atrial fibrillation, rapid ventricular rate 2. Underlying history of chronic right bundle branch block 3. Echocardiographic findings including normal to hyperdynamic LV systolic dysfunction with severe concentric left ventricular hypertrophy Discussion/recommendations: In retrospect, perhaps her back pain was musculoskeletal from having performed physical exertion with her housecleaning. She then developed discomfort. Her had taken her blood pressure at home and noted that her heart rate was 150 at one point and then 85 on the next blood pressure reading. I would speculate that she was having episodes of atrial fibrillation with rapid ventricular rate without subjective palpitations and that this explains her mildly elevated troponin I especially in light of her echocardiographic findings of severe concentric left ventricular hypertrophy and normal to hyperdynamic LV systolic dysfunction. At present, would recommend rhythm control strategy. We'll continue IV amiodarone for now with plans to potentially transitioning to oral amiodarone tomorrow. A heparin infusion has been started for stroke prophylaxis. Coumadin is to be started, 5 mg by mouth daily starting today. Start low-dose metoprolol. Dr. Kasper to assume rounding on 12/03/16. Laboratory Results Last 24 Hours Test 12/01/16 15:35 12/01/16 16:43 12/01/16 20:42 12/01/16 21:40 Total Creatine Kinase 125 U/L 140 U/L Creatine Kinase MB 2.2 ng/ml 1.5 ng/ml Creatine Kinase MB Ratio 1.8 1.1 Troponin I 0.584 ng/ml 0.532 ng/ml Bedside Glucose 126 mg/dl 120 mg/dl Test 12/02/16 06:10 12/02/16 07:03 12/02/16 09:33 12/02/16 10:45 White Blood Count 2.86 K/uL 4.44 K/uL Red Blood Count 5.24 M/uL 4.91 M/uL Hemoglobin 14.9 g/dL 14.4 g/dL Hematocrit 44.8 % 42.0 % Mean Corpuscular Volume 85.5 fL 85.5 fL Mean Corpuscular Hemoglobin 28.4 pg 29.3 pg Mean Corpuscular Hemoglobin Concent 33.3 g/dl 34.3 g/dl RDW Standard Deviation 42.5 fL 42.7 fL RDW Coefficient of Variation 13.6 % 13.6 % Platelet Count 178 K/uL 157 K/uL Mean Platelet Volume 9.9 fL 9.8 fL Sodium Level 134 mmol/L Potassium Level 3.5 mmol/L Chloride Level 97 mmol/L Carbon Dioxide Level 29 mmol/L Anion Gap 8.0 mmol/L Blood Urea Nitrogen 15 mg/dl Creatinine 0.98 mg/dl Est Creatinine Clear Calc Drug Dose 35.1 ml/min Estimated GFR () 63.6 Estimated GFR (Non- 54.9 BUN/Creatinine Ratio 15.1 Random Glucose 83 mg/dl Estimated Average Glucose 157 mg/dl Hemoglobin A1c 7.1 % Calcium Level 8.7 mg/dl Magnesium Level 2.3 mg/dl Triglycerides Level 126 mg/dl Cholesterol Level 154 mg/dl HDL Cholesterol 48 mg/dl LDL Cholesterol, Calculated 81 mg/dl VLDL Cholesterol, Calculated 25 mg/dl Cholesterol/HDL Ratio 3.2 Bedside Glucose 71 mg/dl Prothrombin Time 11.0 SECONDS Prothromb Time International Ratio 1.0 Activated Partial Thromboplast Time 31.1 SECONDS Partial Thromboplastin Ratio 1.2
[2016-12-02 13:09] LABS: INFLUENZA B PCR Neg for Influ B (NEG)
[2016-12-02 13:12] LABS: INFLUENZA A PCR POS for Influ A (NEG)
[2016-12-02] MEDS ORDERED: OSELTAMIVIR PHOSPHATE 75 MG CAP PO ONE (13:45)
[2016-12-02] MEDS: CEFTRIAXONE SOD INJ 1 GM in DEXTROSE 5% ADD-VANTAGE 50ML 50 ML IV SCH (14:43)
[2016-12-02] MEDS ORDERED: POLYETHYLENE (MIRALAX) 17 GM PACK ONE (14:56)
[2016-12-02] MEDS ORDERED: NURSING VERBAL MED ORDER ONE (15:00)
[2016-12-02] MEDS ORDERED: POLYETHYLENE (MIRALAX) 17 GM PACK PO PRN (15:00)
[2016-12-02 15:38] VITALS: BP 131/74; PULSE 61; TEMP 37.2; O2SAT 97
[2016-12-02 16:35] LABS: PARTIAL THROMBOPLASTIN RATIO 5.1
--- NOTE | 2016-12-02 16:37 | Cardiology Progress Note ---
Cardiology Progress Note Date of Service Dec 02, 2016. Cardiology Progress Note Sinus bradycardia in the 45 bpm range noted by nursing. Plan: DC amiodarone infusion. Continue low dose metoprolol as started earlier today. Start amiodarone 200 mg BID.
[2016-12-02] MEDS: WARFARIN SOD 5 MG TAB PO SCH (18:07)
[2016-12-02 19:19] VITALS: BP 116/69; PULSE 61; TEMP 38.3; O2SAT 94
[2016-12-02] MEDS: ACETAMINOPHEN 325 MG TAB PO PRN (19:38)
[2016-12-02] MEDS: METOPROLOL TARTRATE 25 MG TAB PO SCH (20:41)
[2016-12-02] MEDS: OSELTAMIVIR PHOSPHATE 75 MG CAP PO SCH (21:31)
[2016-12-02] MEDS: AMIODARONE 200 MG TAB PO SCH (21:32)
[2016-12-02 23:30] VITALS: BP 122/62; PULSE 54; TEMP 36.4; O2SAT 96
[2016-12-03 02:40] LABS: PARTIAL THROMBOPLASTIN RATIO 8.7
[2016-12-03 04:31] VITALS: BP 107/64; PULSE 63; TEMP 37.5; O2SAT 94
[2016-12-03 05:04] LABS: PARTIAL THROMBOPLASTIN RATIO 3.4
[2016-12-03] MEDS: INSULIN ASPART 100 UNITS/ML 3 ML PEN SC SCH ×4 (07:00→21:10)
[2016-12-03 08:05] LABS: BASO % 0.3 %; BASO ABS # 0.01 K/uL (0-0.2); COMPLETE YES; EOS % 0.3 %; HEMATOCRIT 40.1 % (37-47); IG% 0.3 %; LYMPH % 25.2 %; LYMPH ABS # 0.76 K/uL (1.2-3.4); MEAN CELL VOLUME 85.5 fL (80-100); MEAN CORPUSCULAR HGB CONC 33.9 g/dl (32-36); MEAN PLATELET VOLUME 10.2 fL (7.4-10.4); MONO % 16.9 %; PLATELET COUNT 153 K/uL (130-400); RED BLOOD COUNT 4.69 M/uL (4.2-5.4); WHITE BLOOD COUNT 3.02 K/uL (4.8-10.8)
[2016-12-03 08:22] VITALS: BP 117/66; PULSE 61; TEMP 37.2; O2SAT 94
[2016-12-03 08:24] LABS: INR 1.2 (0.9-1.1); PARTIAL THROMBOPLASTIN RATIO 3.2; PROTHROMBIN TIME (PATIENT) 12.9 SECONDS (9.0-12.0)
[2016-12-03] MEDS: LOSARTAN POTASSIUM 25 MG TAB PO SCH (08:33)
[2016-12-03] MEDS: METOPROLOL TARTRATE 25 MG TAB PO SCH (08:33)
[2016-12-03] MEDS: FELODIPINE 5 MG TABCR PO SCH (08:33)
[2016-12-03] MEDS: CHOLECALCIFEROL 1000 INTER.UNIT TAB PO SCH (08:35)
[2016-12-03] MEDS: CYANOCOBALAMIN 500 MCG TAB (VIT B-12) PO SCH (08:35)
[2016-12-03] MEDS: PANTOprazole SOD 40 MG TAB PO SCH (08:35)
[2016-12-03] MEDS: VITAMIN B COMPLEX TAB PO SCH (08:35)
[2016-12-03] MEDS: ATORVASTATIN 40 MG TAB PO SCH (08:35)
[2016-12-03] MEDS: ASPIRIN 81 MG ECTAB PO SCH (08:35)
[2016-12-03 08:36] LABS: BUN/CREATININE RATIO 21.4 (10-20); CALCIUM 8.2 mg/dl (8.5-10.1); CREATININE 0.83 mg/dl (0.60-1.20); MAGNESIUM 2.2 mg/dl (1.8-2.4); POTASSIUM 4.2 mmol/L (3.5-5.1)
[2016-12-03] MEDS: AMIODARONE 200 MG TAB PO SCH ×2 (08:36→21:26)
[2016-12-03] MEDS: OSELTAMIVIR PHOSPHATE 75 MG CAP PO SCH ×2 (08:37→21:26)
[2016-12-03] MEDS: HEPARIN 25,000 UNIT/500ML D5W 500 ML IV PRN (09:18)
--- NOTE | 2016-12-03 09:48 | Progress Note ---
Internal Med Progress Note Date of Service: Dec 03, 2016. Provider Documentation: SUBJECTIVE: Patient is seen and examined at bedside. States she is feeling better when compared to yesterday. Cough is improving. Denies chest pain, palpitations, dizziness, SOB. Family at bedside. Offers no other complaints. OBJECTIVE: Vital Signs-as noted below Physical Exam: General Appearance:Moderately built and nourished, no apparent distress Head: normocephalic, Atraumatic Eyes: normal inspection, EOMI, PERRLA Neck: supple, Trachea midline Respiratory/Chest: Normal breath sounds, CTA Cardiovascular: S1, S2, No murmur Abdomen/GI:Soft, Non tender, Bowel sounds present Extremities/Musculoskelatal:normal inspection, no edema Neurologic/Psych:AAOX3, grossly no focal neurological deficits Skin: normal color, warm Lab data as noted below. ASSESSMENT & PLAN: Paroxysmal Afib with RVR: Presents with pain between shoulders radiating to bilateral arms: likely musculoskeletal No known history of afib Elevated troponin likely secondary to Afib Continue amiodarone, BB Continue IV heparin, Coumadin INR:1.2, monitor INR EKG: No signs of ischemia ECHO: small to moderate loculated anterior and right lateral pericardial effusion, Normal LV function, Normal wall motion CT angiogram: No aortic dissection/PE but has severe CAD Appreciate Cardiology input ELEVATED TROPONIN CT angio: Severe CAD Troponin 0.568, EKG No signs of Ischemia ECHO: No wall motion abnormality Continue Aspirin, Lipitor, BB Cardiology on board UTI Urine culture:K.pneumoniae Continue IV ceftriaxone Positive Influenza A: Continue Tamiflu # 2/5 for 5 days DM II Hold glipizide A1c:7.1 ISS, accu checks while hospitalized HTN stable continue Losartan, felodipine Monitor CKD III Cr stable Monitor renal function Avoid nephrotoxic agents as able GERD continue PPI DVT PX: On IV heparin CODE STATUS: FULL CODE DISPOSITION: Continue monitoring in Telemetry PROCEDURES: ECHO: * The left ventricular wall motion is normal. * The left ventricular cavity is small. * There is severe concentric left ventricular hypertrophy. * The LV Ejection Fraction = 65-70%. * Grade I diastolic dysfunction, (abnormal relaxation pattern). * There is severe mitral annular calcification. * There is a small to moderate loculated anterior and right lateral pericardial effusion. * There is no echocardiographic evidence of tamponade. Vital Signs: Date Time Temp Pulse Resp B/P Pulse Ox O2 Delivery O2 Flow Rate FiO2 12/03/16 08:22 37.2 61 20 117/66 94 Room Air 12/03/16 07:20 Room Air 12/03/16 04:31 37.5 63 18 107/64 94 Room Air 12/03/16 04:00 Room Air 12/03/16 00:00 Room Air 12/02/16 23:30 36.4 54 16 122/62 96 Room Air 12/02/16 20:00 Room Air 12/02/16 19:19 38.3 61 16 116/69 94 Room Air 12/02/16 16:00 Room Air 12/02/16 15:38 37.2 61 16 131/74 97 Room Air 12/02/16 12:29 37.8 65 16 107/49 95 Room Air 12/02/16 12:00 Room Air Lab Results: Results Past 24 Hours Test 12/02/16 10:45 12/02/16 15:55 12/02/16 16:35 12/02/16 17:47 Range/Units Influenza Type A (RT-PCR) POS for Influ A NEG Influenza Type B (RT-PCR) Neg for Influ B NEG Activated Partial Thromboplast Time 131.9 78.6 21.0-31.0 SECONDS Partial Thromboplastin Ratio 5.1 3.0 Bedside Glucose 190 70-90 mg/dl Test 12/02/16 20:20 12/03/16 01:22 12/03/16 04:30 12/03/16 07:05 Range/Units Bedside Glucose 129 70-90 mg/dl Activated Partial Thromboplast Time 229.2 88.4 83.6 21.0-31.0 SECONDS Partial Thromboplastin Ratio 8.7 3.4 3.2 White Blood Count 3.02 4.8-10.8 K/uL Red Blood Count 4.69 4.2-5.4 M/uL Hemoglobin 13.6 12.0-16.0 g/dL Hematocrit 40.1 37-47 % Mean Corpuscular Volume 85.5 80-100 fL Mean Corpuscular Hemoglobin 29.0 25-34 pg Mean Corpuscular Hemoglobin Concent 33.9 32-36 g/dl Platelet Count 153 130-400 K/uL Mean Platelet Volume 10.2 7.4-10.4 fL Neutrophils (%) (Auto) 57.0 % Lymphocytes (%) (Auto) 25.2 % Monocytes (%) (Auto) 16.9 % Eosinophils (%) (Auto) 0.3 % Basophils (%) (Auto) 0.3 % Neutrophils # (Auto) 1.72 1.4-6.5 K/uL Lymphocytes # (Auto) 0.76 1.2-3.4 K/uL Monocytes # (Auto) 0.51 0.11-0.59 K/uL Eosinophils # (Auto) 0.01 0-0.5 K/uL Basophils # (Auto) 0.01 0-0.2 K/uL RDW Standard Deviation 42.7 36.4-46.3 fL RDW Coefficient of Variation 13.6 11.5-14.5 % Immature Granulocyte % (Auto) 0.3 % Immature Granulocyte # (Auto) 0.01 0.00-0.02 K/uL Prothrombin Time 12.9 9.0-12.0 SECONDS Prothromb Time International Ratio 1.2 0.9-1.1 Sodium Level 133 136-145 mmol/L Potassium Level 4.2 3.5-5.1 mmol/L Chloride Level 97 98-107 mmol/L Carbon Dioxide Level 28 21-32 mmol/L Anion Gap 8.0 3-11 mmol/L Blood Urea Nitrogen 18 7-18 mg/dl Creatinine 0.83 0.60-1.20 mg/dl Est Creatinine Clear Calc Drug Dose 41.4 ml/min Estimated GFR () 77.7 Estimated GFR (Non- 67.1 BUN/Creatinine Ratio 21.4 10-20 Random Glucose 80 70-99 mg/dl Calcium Level 8.2 8.5-10.1 mg/dl Magnesium Level 2.2 1.8-2.4 mg/dl
[2016-12-03 13:00] VITALS: BP 93/52; PULSE 47; TEMP 36.6; O2SAT 95
[2016-12-03] MEDS: CEFTRIAXONE SOD INJ 1 GM in DEXTROSE 5% ADD-VANTAGE 50ML 50 ML IV SCH (14:00)
[2016-12-03 15:09] LABS: PARTIAL THROMBOPLASTIN RATIO 4.1
[2016-12-03] MEDS: WARFARIN SOD 5 MG TAB PO SCH (15:29)
--- NOTE | 2016-12-03 15:39 | Cardiology Follow-Up ---
Subjective General Date of Service: Dec 03, 2016. Chief Complaint: follow up elevated troponin, new AF Pt evaluation today including: conversation w/ patient, physical exam, chart review, lab review, review of studies, conversation w/ outside solar sales consultant, review of inpatient medication list History of Present Illness The patient is a 81 year old female seen in follow up. Remains in sinus rhythm on telemetry, however, more bradycardic this afternoon. Denies chest discomfort or palpitations. No lightheadedness or dizziness. Allergies Coded Allergies: Influenza Vaccine Live (Verified Allergy, Unknown, RASH, 12/01/16) Social History Smoking Status: Never Smoker Hx Tobacco Use In Past Year?: No Hx Alcohol Use - Type And Amou: No Hx Substance Use - Type And Am: No Problem List Medical Problems: (1) Back pain Status: Acute (2) Non-ST elevation LA (NSTEMI) Status: Acute Review of Systems Respiratory: No cough, No dyspnea at rest, No dyspnea on exertion, No hemoptysis, No shortness of breath, No wheezing Cardiac: No chest pain, No edema, No orthopnea, No palpitations Physical Exam Vital Signs Last Vital Signs Documentation Date Time Temp Pulse Resp B/P Pulse Ox O2 Delivery O2 Flow Rate FiO2 12/03/16 13:00 36.6 47 20 93/52 95 Room Air Physical Exam Constitutional: Level of Distress: NAD Head: normocephalic, atraumatic ENMT: normal ENT inspection Neck: supple Lungs: Auscultation: no wheezing, no rales/crackles Cardiovascular: Heart Auscultation: RRR, no murmurs Peripheral Pulses: Radial Pulse: normal on the left, normal on the right Abdomen: Inspection & Palpation: soft, non-distended, no tenderness, guarding & rebound Extremities: no edema, no clubbing, no ulcers Neurologic: Gait & Station: pertinent finding (no focal neuro deficits ) Assessment and Plan Assessment and Plan Impression: 1. Paroxysmal atrial fibrillation with RVR with subsequent conversion to sinus rhythm. - currently sinus bradycardia 2. Chronic right bundle branch block 3. Severe concentric left ventricular hypertrophy with hyperdynamic LV function 4. Small loculated pericardial effusion 5. +Klebsiella UTi 6. + Influenza A Discussion/recommendations: Hold metoprolol. Continue oral amiodarone 200mg BID. Continue IV heparin as bridge to coumadin. PT/INR in AM. Follow telemetry. Laboratory Results Last 24 Hours Test 12/02/16 15:55 12/02/16 16:35 12/02/16 17:47 12/02/16 20:20 Activated Partial Thromboplast Time 131.9 SECONDS 78.6 SECONDS Partial Thromboplastin Ratio 5.1 3.0 Bedside Glucose 190 mg/dl 129 mg/dl Test 12/03/16 01:22 12/03/16 04:30 12/03/16 07:05 12/03/16 11:46 Activated Partial Thromboplast Time 229.2 SECONDS 88.4 SECONDS 83.6 SECONDS Partial Thromboplastin Ratio 8.7 3.4 3.2 White Blood Count 3.02 K/uL Red Blood Count 4.69 M/uL Hemoglobin 13.6 g/dL Hematocrit 40.1 % Mean Corpuscular Volume 85.5 fL Mean Corpuscular Hemoglobin 29.0 pg Mean Corpuscular Hemoglobin Concent 33.9 g/dl Platelet Count 153 K/uL Mean Platelet Volume 10.2 fL Neutrophils (%) (Auto) 57.0 % Lymphocytes (%) (Auto) 25.2 % Monocytes (%) (Auto) 16.9 % Eosinophils (%) (Auto) 0.3 % Basophils (%) (Auto) 0.3 % Neutrophils # (Auto) 1.72 K/uL Lymphocytes # (Auto) 0.76 K/uL Monocytes # (Auto) 0.51 K/uL Eosinophils # (Auto) 0.01 K/uL Basophils # (Auto) 0.01 K/uL RDW Standard Deviation 42.7 fL RDW Coefficient of Variation 13.6 % Immature Granulocyte % (Auto) 0.3 % Immature Granulocyte # (Auto) 0.01 K/uL Prothrombin Time 12.9 SECONDS Prothromb Time International Ratio 1.2 Sodium Level 133 mmol/L Potassium Level 4.2 mmol/L Chloride Level 97 mmol/L Carbon Dioxide Level 28 mmol/L Anion Gap 8.0 mmol/L Blood Urea Nitrogen 18 mg/dl Creatinine 0.83 mg/dl Est Creatinine Clear Calc Drug Dose 41.4 ml/min Estimated GFR () 77.7 Estimated GFR (Non- 67.1 BUN/Creatinine Ratio 21.4 Random Glucose 80 mg/dl Calcium Level 8.2 mg/dl Magnesium Level 2.2 mg/dl Bedside Glucose 90 mg/dl Test 12/03/16 14:43 Activated Partial Thromboplast Time 106.4 SECONDS Partial Thromboplastin Ratio 4.1
[2016-12-03 16:00] VITALS: BP 107/68; PULSE 50; TEMP 36.5; O2SAT 95
[2016-12-03 19:06] LABS: PARTIAL THROMBOPLASTIN RATIO 2.6
[2016-12-03 20:20] VITALS: BP 121/74; PULSE 57; TEMP 36.8; O2SAT 94
[2016-12-03 23:26] VITALS: BP 146/71; PULSE 63; TEMP 37.1; O2SAT 95
[2016-12-03 23:47] LABS: PARTIAL THROMBOPLASTIN RATIO 2.7
[2016-12-04] VITALS (7 sets, daily range): BP systolic 109–147; BP diastolic 51–76; PULSE 59–74; TEMP 36.4–37.2; O2SAT 92–99
[2016-12-04 06:20] LABS: HEMATOCRIT 38.9 % (37-47); MEAN CELL VOLUME 85.3 fL (80-100); MEAN CORPUSCULAR HEMOGLOBIN 29.4 pg (25-34); MEAN CORPUSCULAR HGB CONC 34.4 g/dl (32-36); MEAN PLATELET VOLUME 10.1 fL (7.4-10.4); PLATELET COUNT 149 K/uL (130-400); RED BLOOD COUNT 4.56 M/uL (4.2-5.4); WHITE BLOOD COUNT 2.87 K/uL (4.8-10.8)
[2016-12-04 06:43] LABS: INR 1.8 (0.9-1.1); PARTIAL THROMBOPLASTIN RATIO 2.8; PROTHROMBIN TIME (PATIENT) 20.1 SECONDS (9.0-12.0)
[2016-12-04 06:51] LABS: CREATININE 0.89 mg/dl (0.60-1.20); MAGNESIUM 2.2 mg/dl (1.8-2.4); POTASSIUM 4.6 mmol/L (3.5-5.1)
[2016-12-04] MEDS: INSULIN ASPART 100 UNITS/ML 3 ML PEN SC SCH ×4 (07:00→21:00)
[2016-12-04] MEDS: AMIODARONE 200 MG TAB PO SCH ×2 (07:57→19:57)
[2016-12-04] MEDS: OSELTAMIVIR PHOSPHATE 75 MG CAP PO SCH ×2 (07:57→19:57)
[2016-12-04] MEDS: PANTOprazole SOD 40 MG TAB PO SCH (07:57)
[2016-12-04] MEDS: LOSARTAN POTASSIUM 25 MG TAB PO SCH (07:57)
[2016-12-04] MEDS: CHOLECALCIFEROL 1000 INTER.UNIT TAB PO SCH (07:57)
[2016-12-04] MEDS: VITAMIN B COMPLEX TAB PO SCH (07:58)
[2016-12-04] MEDS: CYANOCOBALAMIN 500 MCG TAB (VIT B-12) PO SCH (07:58)
[2016-12-04] MEDS: FELODIPINE 5 MG TABCR PO SCH (07:58)
[2016-12-04] MEDS: ATORVASTATIN 40 MG TAB PO SCH (07:58)
[2016-12-04] MEDS: ASPIRIN 81 MG ECTAB PO SCH (07:58)
--- NOTE | 2016-12-04 09:24 | Progress Note ---
Internal Med Progress Note Date of Service: Dec 04, 2016. Provider Documentation: SUBJECTIVE: Patient is seen and examined at bedside. Feels much better this morning. Intermittent Cough. Denies chest pain, palpitations, dizziness, SOB. Family at bedside. Offers no other complaints. OBJECTIVE: Vital Signs-as noted below Physical Exam: General Appearance:Moderately built and nourished, no apparent distress Head: normocephalic, Atraumatic Eyes: normal inspection, EOMI, PERRLA Neck: supple, Trachea midline Respiratory/Chest: Normal breath sounds, CTA Cardiovascular: S1, S2, No murmur Abdomen/GI:Soft, Non tender, Bowel sounds present Extremities/Musculoskelatal:normal inspection, no edema Neurologic/Psych:AAOX3, grossly no focal neurological deficits Skin: normal color, warm Lab data as noted below. ASSESSMENT & PLAN: Paroxysmal Afib with RVR: Presents with pain between shoulders radiating to bilateral arms: likely musculoskeletal No known history of afib Elevated troponin likely secondary to Afib Continue amiodarone 200mg BID Metoprolol on hold Continue IV heparin, Coumadin INR:1.8, monitor INR EKG: No signs of ischemia ECHO: small to moderate loculated anterior and right lateral pericardial effusion, Normal LV function, Normal wall motion CT angiogram: No aortic dissection/PE but has severe CAD Appreciate Cardiology input ELEVATED TROPONIN CT angio: Severe CAD Troponin 0.568, 0.58, 0.53 EKG No signs of Ischemia ECHO: No wall motion abnormality Continue Aspirin, Lipitor, BB Cardiology on board UTI Urine culture:K.pneumoniae Continue IV ceftriaxone for now Day #3 Positive Influenza A: Continue Tamiflu # 3/5 for 5 days DM II Hold glipizide A1c:7.1 ISS, accu checks while hospitalized HTN stable continue Losartan, felodipine Monitor CKD III Cr stable Monitor renal function Avoid nephrotoxic agents as able GERD continue PPI DVT PX: On IV heparin CODE STATUS: FULL CODE DISPOSITION: Continue monitoring in Telemetry PROCEDURES: ECHO: * The left ventricular wall motion is normal. * The left ventricular cavity is small. * There is severe concentric left ventricular hypertrophy. * The LV Ejection Fraction = 65-70%. * Grade I diastolic dysfunction, (abnormal relaxation pattern). * There is severe mitral annular calcification. * There is a small to moderate loculated anterior and right lateral pericardial effusion. * There is no echocardiographic evidence of tamponade. Vital Signs: Date Time Temp Pulse Resp B/P Pulse Ox O2 Delivery O2 Flow Rate FiO2 12/04/16 08:06 36.9 62 20 136/76 96 Room Air 12/04/16 07:30 Room Air 12/04/16 04:00 Room Air 12/04/16 03:16 37.1 63 18 126/67 94 Room Air 12/04/16 00:00 Room Air 12/03/16 23:26 37.1 63 17 146/71 95 Room Air 12/03/16 20:20 36.8 57 20 121/74 94 Room Air 12/03/16 20:00 Room Air 12/03/16 16:00 Room Air 12/03/16 16:00 36.5 50 20 107/68 95 Room Air 12/03/16 13:00 36.6 47 20 93/52 95 Room Air 12/03/16 12:00 Room Air Lab Results: Results Past 24 Hours Test 12/03/16 11:46 12/03/16 14:43 12/03/16 16:47 12/03/16 18:40 Range/Units Bedside Glucose 90 103 70-90 mg/dl Activated Partial Thromboplast Time 106.4 67.4 21.0-31.0 SECONDS Partial Thromboplastin Ratio 4.1 2.6 Test 12/03/16 20:53 12/03/16 23:24 12/04/16 05:30 12/04/16 06:36 Range/Units Bedside Glucose 127 102 70-90 mg/dl Activated Partial Thromboplast Time 69.8 73.2 21.0-31.0 SECONDS Partial Thromboplastin Ratio 2.7 2.8 White Blood Count 2.87 4.8-10.8 K/uL Red Blood Count 4.56 4.2-5.4 M/uL Hemoglobin 13.4 12.0-16.0 g/dL Hematocrit 38.9 37-47 % Mean Corpuscular Volume 85.3 80-100 fL Mean Corpuscular Hemoglobin 29.4 25-34 pg Mean Corpuscular Hemoglobin Concent 34.4 32-36 g/dl RDW Standard Deviation 42.0 36.4-46.3 fL RDW Coefficient of Variation 13.5 11.5-14.5 % Platelet Count 149 130-400 K/uL Mean Platelet Volume 10.1 7.4-10.4 fL Prothrombin Time 20.1 9.0-12.0 SECONDS Prothromb Time International Ratio 1.8 0.9-1.1 Sodium Level 134 136-145 mmol/L Potassium Level 4.6 3.5-5.1 mmol/L Chloride Level 98 98-107 mmol/L Carbon Dioxide Level 28 21-32 mmol/L Anion Gap 8.0 3-11 mmol/L Blood Urea Nitrogen 18 7-18 mg/dl Creatinine 0.89 0.60-1.20 mg/dl Est Creatinine Clear Calc Drug Dose 38.6 ml/min Estimated GFR () 71.4 Estimated GFR (Non- 61.6 BUN/Creatinine Ratio 20.0 10-20 Random Glucose 105 70-99 mg/dl Calcium Level 8.0 8.5-10.1 mg/dl Magnesium Level 2.2 1.8-2.4 mg/dl
--- NOTE | 2016-12-04 10:08 | Cardiology Follow-Up ---
Subjective General Date of Service: Dec 04, 2016. Chief Complaint: follow up elevated troponin, new AF Pt evaluation today including: conversation w/ patient, conversation w/ family , physical exam, chart review, lab review, review of studies, conversation w/ senior [employer] consultant, review of inpatient medication list History of Present Illness The patient is a 81 year old female seen in follow up. Remains in sinus rhythm on telemetry. Denies chest discomfort or palpitations. No lightheadedness or dizziness. +cough Allergies Coded Allergies: Influenza Vaccine Live (Verified Allergy, Unknown, RASH, 12/01/16) Social History Smoking Status: Never Smoker Hx Tobacco Use In Past Year?: No Hx Alcohol Use - Type And Amou: No Hx Substance Use - Type And Am: No Problem List Medical Problems: (1) Back pain Status: Acute (2) Non-ST elevation MA (NSTEMI) Status: Acute Review of Systems Respiratory: + cough, + dyspnea on exertion, + sputum, No dyspnea at rest, No hemoptysis, No shortness of breath, No wheezing Cardiac: No PND, No chest pain, No claudication, No edema, No orthopnea, No palpitations Physical Exam Vital Signs Last Vital Signs Documentation Date Time Temp Pulse Resp B/P Pulse Ox O2 Delivery O2 Flow Rate FiO2 12/04/16 08:06 36.9 62 20 136/76 96 Room Air Physical Exam Constitutional: Level of Distress: NAD Head: normocephalic, atraumatic ENMT: normal ENT inspection Neck: supple Lungs: Auscultation: no wheezing, no rales/crackles Cardiovascular: Heart Auscultation: RRR, no murmurs Peripheral Pulses: Radial Pulse: normal on the left, normal on the right Abdomen: Inspection & Palpation: soft, non-distended, no tenderness, guarding & rebound Extremities: no edema, no clubbing, no ulcers Neurologic: Gait & Station: pertinent finding (no focal neuro deficits ) Cranial Nerves: grossly intact Assessment and Plan Assessment and Plan Impression: 1. Paroxysmal atrial fibrillation with RVR with subsequent conversion to sinus rhythm. - currently sinus rhythm - INR 1.8 today 2. Chronic right bundle branch block 3. Severe concentric left ventricular hypertrophy with hyperdynamic LV function 4. Small loculated pericardial effusion 5. +Klebsiella UTI 6. + Influenza A Discussion/recommendations: Continue oral amiodarone 200mg BID. Continue IV heparin as bridge to coumadin. PT/INR in AM. Follow telemetry. Plan for discharge in 24 - 48 hours. Laboratory Results Last 24 Hours Test 12/03/16 11:46 12/03/16 14:43 12/03/16 16:47 12/03/16 18:40 Bedside Glucose 90 mg/dl 103 mg/dl Activated Partial Thromboplast Time 106.4 SECONDS 67.4 SECONDS Partial Thromboplastin Ratio 4.1 2.6 Test 12/03/16 20:53 12/03/16 23:24 12/04/16 05:30 12/04/16 06:36 Bedside Glucose 127 mg/dl 102 mg/dl Activated Partial Thromboplast Time 69.8 SECONDS 73.2 SECONDS Partial Thromboplastin Ratio 2.7 2.8 White Blood Count 2.87 K/uL Red Blood Count 4.56 M/uL Hemoglobin 13.4 g/dL Hematocrit 38.9 % Mean Corpuscular Volume 85.3 fL Mean Corpuscular Hemoglobin 29.4 pg Mean Corpuscular Hemoglobin Concent 34.4 g/dl RDW Standard Deviation 42.0 fL RDW Coefficient of Variation 13.5 % Platelet Count 149 K/uL Mean Platelet Volume 10.1 fL Prothrombin Time 20.1 SECONDS Prothromb Time International Ratio 1.8 Sodium Level 134 mmol/L Potassium Level 4.6 mmol/L Chloride Level 98 mmol/L Carbon Dioxide Level 28 mmol/L Anion Gap 8.0 mmol/L Blood Urea Nitrogen 18 mg/dl Creatinine 0.89 mg/dl Est Creatinine Clear Calc Drug Dose 38.6 ml/min Estimated GFR () 71.4 Estimated GFR (Non- 61.6 BUN/Creatinine Ratio 20.0 Random Glucose 105 mg/dl Calcium Level 8.0 mg/dl Magnesium Level 2.2 mg/dl
[2016-12-04 14:31] LABS: PARTIAL THROMBOPLASTIN RATIO 2.2
[2016-12-04] MEDS: WARFARIN SOD 5 MG TAB PO SCH (15:39)
[2016-12-04] MEDS: CEFTRIAXONE SOD INJ 1 GM in DEXTROSE 5% ADD-VANTAGE 50ML 50 ML IV SCH (15:40)
[2016-12-04] MEDS: HEPARIN 25,000 UNIT/500ML D5W 500 ML IV PRN (15:44)
[2016-12-05 00:01] VITALS: O2SAT 97
[2016-12-05 03:40] VITALS: BP 127/68; PULSE 61; TEMP 36.7; O2SAT 98
[2016-12-05 04:23] VITALS: O2SAT 97
[2016-12-05 05:58] LABS: BASO % 0.4 %; BASO ABS # 0.01 K/uL (0-0.2); COMPLETE YES; EOS % 1.4 %; HEMATOCRIT 38.9 % (37-47); IG% 0.4 %; LYMPH % 33.6 %; LYMPH ABS # 0.94 K/uL (1.2-3.4); MEAN CORPUSCULAR HEMOGLOBIN 28.7 pg (25-34); MEAN CORPUSCULAR HGB CONC 34.2 g/dl (32-36); MONO % 11.8 %; NEUT % 52.4 %; PLATELET COUNT 171 K/uL (130-400); RED BLOOD COUNT 4.63 M/uL (4.2-5.4)
[2016-12-05 06:09] LABS: PARTIAL THROMBOPLASTIN RATIO 2.3; PROTHROMBIN TIME (PATIENT) 40.8 SECONDS (9.0-12.0)
[2016-12-05 06:12] LABS: INR 3.6 (0.9-1.1)
[2016-12-05 06:35] LABS: BUN/CREATININE RATIO 14.3 (10-20); CALCIUM 8.2 mg/dl (8.5-10.1); CREATININE 0.85 mg/dl (0.60-1.20); POTASSIUM 4.7 mmol/L (3.5-5.1)
[2016-12-05] MEDS: AMIODARONE 200 MG TAB PO SCH (08:07)
[2016-12-05] MEDS: ATORVASTATIN 40 MG TAB PO SCH (08:08)
[2016-12-05] MEDS: FELODIPINE 5 MG TABCR PO SCH (08:08)
[2016-12-05] MEDS: LOSARTAN POTASSIUM 25 MG TAB PO SCH (08:08)
[2016-12-05] MEDS: ASPIRIN 81 MG ECTAB PO SCH (08:08)
[2016-12-05] MEDS: VITAMIN B COMPLEX TAB PO SCH (08:09)
[2016-12-05] MEDS: CHOLECALCIFEROL 1000 INTER.UNIT TAB PO SCH (08:09)
[2016-12-05] MEDS: CYANOCOBALAMIN 500 MCG TAB (VIT B-12) PO SCH (08:09)
[2016-12-05] MEDS: OSELTAMIVIR PHOSPHATE 75 MG CAP PO SCH (08:09)
[2016-12-05] MEDS: INSULIN ASPART 100 UNITS/ML 3 ML PEN SC SCH (08:15)
[2016-12-05 08:32] VITALS: BP 120/68; PULSE 90; TEMP 36.7; O2SAT 94
--- NOTE | 2016-12-05 08:32 | Progress Note ---
Internal Med Progress Note Date of Service: Dec 05, 2016. Provider Documentation: SUBJECTIVE: Patient is seen and examined at bedside. States doing well. Offers no new complaints. Denies chest pain, palpitations, dizziness, SOB. Offers no other complaints. OBJECTIVE: Vital Signs-as noted below Physical Exam: General Appearance:Moderately built and nourished, no apparent distress Head: normocephalic, Atraumatic Eyes: normal inspection, EOMI, PERRLA Neck: supple, Trachea midline Respiratory/Chest: Normal breath sounds, CTA Cardiovascular: S1, S2, No murmur Abdomen/GI:Soft, Non tender, Bowel sounds present Extremities/Musculoskelatal:normal inspection, no edema Neurologic/Psych:AAOX3, grossly no focal neurological deficits Skin: normal color, warm Lab data as noted below. ASSESSMENT & PLAN: Paroxysmal Afib with RVR: Presents with pain between shoulders radiating to bilateral arms: likely musculoskeletal No known history of afib Elevated troponin likely secondary to Afib Continue amiodarone 200mg BID for 5 days and the once a day Metoprolol discontinued secondary to bradycardia S/P IV heparin, on Coumadin INR:3.6, monitor INR DC Heparin, hold Coumadin today EKG: No signs of ischemia ECHO: small to moderate loculated anterior and right lateral pericardial effusion, Normal LV function, Normal wall motion CT angiogram: No aortic dissection/PE but has severe CAD Appreciate Cardiology input ELEVATED TROPONIN CT angio: Severe CAD Troponin 0.568, 0.58, 0.53 EKG No signs of Ischemia ECHO: No wall motion abnormality Continue Aspirin, Lipitor, BB Cardiology on board UTI Urine culture:K.pneumoniae Continue IV ceftriaxone S/P # 3 >> switch to PO antibiotics based on sensitivities Positive Influenza A: Continue Tamiflu # 3/5 for 5 days DM II Hold glipizide A1c:7.1 ISS, accu checks while hospitalized HTN stable continue Losartan, felodipine Monitor CKD III Cr stable Monitor renal function Avoid nephrotoxic agents as able GERD continue PPI DVT PX: On IV heparin, INR therapeutic CODE STATUS: FULL CODE DISPOSITION: Plan to discharge home today Follow up with on 12/08/16 at 9:30AM Follow up with cardiology for in 1 week (Office will call and notify the appointment) Follow up with Coumadin clinic on 12/06/16 to get PT/INR test and for further coumadin dosage instructions. No do not take coumadin today (12/05/16) Complete the antibiotic course as prescribed Take amiodarone 200mg Twice a day for 5 days and then once a day Seek immediate medical attention if your symptoms reoccur or worsen PROCEDURES: ECHO: * The left ventricular wall motion is normal. * The left ventricular cavity is small. * There is severe concentric left ventricular hypertrophy. * The LV Ejection Fraction = 65-70%. * Grade I diastolic dysfunction, (abnormal relaxation pattern). * There is severe mitral annular calcification. * There is a small to moderate loculated anterior and right lateral pericardial effusion. * There is no echocardiographic evidence of tamponade. Vital Signs: Date Time Temp Pulse Resp B/P Pulse Ox O2 Delivery O2 Flow Rate FiO2 12/05/16 08:32 36.7 90 18 120/68 94 Room Air 12/05/16 08:00 Room Air 12/05/16 04:23 97 Room Air 12/05/16 03:40 36.7 61 16 127/68 98 Room Air 12/05/16 00:01 97 Room Air 12/04/16 23:31 37.2 74 18 147/76 98 Room Air 12/04/16 20:00 97 Room Air 12/04/16 18:09 36.4 62 18 128/65 97 Room Air 12/04/16 15:52 36.4 59 18 145/74 99 Room Air 12/04/16 15:20 Room Air 12/04/16 12:20 36.6 67 20 109/51 92 Room Air 12/04/16 11:26 Room Air Lab Results: Results Past 24 Hours Test 12/04/16 10:59 12/04/16 14:11 12/04/16 16:26 12/04/16 20:21 Range/Units Bedside Glucose 122 103 166 70-90 mg/dl Activated Partial Thromboplast Time 57.6 21.0-31.0 SECONDS Partial Thromboplastin Ratio 2.2 Test 12/05/16 05:33 12/05/16 06:43 Range/Units White Blood Count 2.80 4.8-10.8 K/uL Red Blood Count 4.63 4.2-5.4 M/uL Hemoglobin 13.3 12.0-16.0 g/dL Hematocrit 38.9 37-47 % Mean Corpuscular Volume 84.0 80-100 fL Mean Corpuscular Hemoglobin 28.7 25-34 pg Mean Corpuscular Hemoglobin Concent 34.2 32-36 g/dl Platelet Count 171 130-400 K/uL Mean Platelet Volume 10.0 7.4-10.4 fL Neutrophils (%) (Auto) 52.4 % Lymphocytes (%) (Auto) 33.6 % Monocytes (%) (Auto) 11.8 % Eosinophils (%) (Auto) 1.4 % Basophils (%) (Auto) 0.4 % Neutrophils # (Auto) 1.47 1.4-6.5 K/uL Lymphocytes # (Auto) 0.94 1.2-3.4 K/uL Monocytes # (Auto) 0.33 0.11-0.59 K/uL Eosinophils # (Auto) 0.04 0-0.5 K/uL Basophils # (Auto) 0.01 0-0.2 K/uL RDW Standard Deviation 40.6 36.4-46.3 fL RDW Coefficient of Variation 13.3 11.5-14.5 % Immature Granulocyte % (Auto) 0.4 % Immature Granulocyte # (Auto) 0.01 0.00-0.02 K/uL Prothrombin Time 40.8 9.0-12.0 SECONDS Prothromb Time International Ratio 3.6 0.9-1.1 Activated Partial Thromboplast Time 60.0 21.0-31.0 SECONDS Partial Thromboplastin Ratio 2.3 Sodium Level 138 136-145 mmol/L Potassium Level 4.7 3.5-5.1 mmol/L Chloride Level 101 98-107 mmol/L Carbon Dioxide Level 29 21-32 mmol/L Anion Gap 8.0 3-11 mmol/L Blood Urea Nitrogen 12 7-18 mg/dl Creatinine 0.85 0.60-1.20 mg/dl Est Creatinine Clear Calc Drug Dose 40.5 ml/min Estimated GFR () 75.5 Estimated GFR (Non- 65.2 BUN/Creatinine Ratio 14.3 10-20 Random Glucose 115 70-99 mg/dl Calcium Level 8.2 8.5-10.1 mg/dl Bedside Glucose 100 70-90 mg/dl
[2016-12-05] MEDS ORDERED: CFT250 PO (09:19)
[2016-12-05] MEDS ORDERED: TMF75 PO (09:19)
[2016-12-05] MEDS ORDERED: WARF1TAB PO (09:19)
[2016-12-05] MEDS ORDERED: CRD200 PO (09:19)
--- NOTE | 2016-12-05 09:23 | Discharge Summary ---
Discharge Summary Date of Service Dec 05, 2016. Discharge Summary Admission Date: Dec 02, 2016 at 10:01 Discharge Date: Dec 05, 2016 Discharge Disposition: Home Principal Diagnosis: Afib, UTI, Influenza A Procedures: CT dissection: 1. Minimal atherosclerotic change thoracic aorta.. 2. No evidence for aneurysm or dissection. 3. No evidence for pulmonary embolus. 4. Lungs are clear. CXR: No acute process. Chronic change. ECHO: * The left ventricular wall motion is normal. * The left ventricular cavity is small. * There is severe concentric left ventricular hypertrophy. * The LV Ejection Fraction = 65-70%. * Grade I diastolic dysfunction, (abnormal relaxation pattern). * There is severe mitral annular calcification. * There is a small to moderate loculated anterior and right lateral pericardial effusion. * There is no echocardiographic evidence of tamponade. Consultations: Cardiology Pending Studies/Follow-Up: Follow up with on 12/08/16 at 9:30AM Follow up with cardiology for in 1 week (Office will call and notify the appointment) Follow up with Coumadin clinic on 12/06/16 to get PT/INR test and for further coumadin dosage instructions. No do not take coumadin today (12/05/16) Take amiodarone 200mg Twice a day for 5 days and then once a day Complete the antibiotic course as prescribed Seek immediate medical attention if your symptoms reoccur or worsen Medication Reconciliation New Medications: Cefuroxime Axetil (Cefuroxime Axetil) 250 Mg Tab 250 MG PO BID for 4 Days, #8 Warfarin Sodium (Coumadin) 1 Mg Tab 1 TAB PO UD for 30 Days, #100 TAB 5 Refills No coumadin today. Get PT/INR checked on 12/06/16 at coumadin clinic and further dosing based on your INR Amiodarone HCl (Amiodarone HCl) 200 Mg Tab 200 MG PO UD for 30 Days, #30 TAB 1 Refill Start taking amiodarone 200mg twice a day for 5 days and then once a day Oseltamivir Phosphate (Tamiflu) 75 Mg Cap 75 MG PO BID for 2 Days, #4 CAP Continued Medications: Aspirin (Aspir-81) 81 Mg Tab 81 MG PO DAILY Cholecalciferol (Vitamin D3) 1,000 Unit Tab 1 TAB PO DAILY for 90 Days, #90 TAB 3 Refills Cyanocobalamin (Vitamin B-12) 1,000 Mcg Tab 2000 MCG PO DAILY, TAB Felodipine (Plendil Er) 5 Mg Tab 1 TAB PO DAILY for 30 Days, #30 TAB 5 Refills Glipizide (Glipizide Er) 5 Mg Tab 5 MG PO DAILY, #90 Hydrochlorothiazide (Hydrochlorothiazide) 25 Mg Tab 12.5 MG PO DAILY, #45 Losartan Potassium (Cozaar) 25 Mg Tab 25 MG PO DAILY, TAB Omeprazole (Prilosec) 20 Mg Cap 20 MG PO DAILY, CAP Vitamin B Complex (Vitamin B Complex) 1 Tab Tab 1 TABLET PO DAILY Admission Information HPI (per Admitting provider): Patient seen and examined. 81 year old female with PMHx of DM2, HTN, CKD stage 3 , presents to the ED complaining of several episodes of upper back pain over the last 1-2 days. Patient reports she has been intermittently getting back pain between the shoulder blades. It would last for around a half hour and then resolved spontaneously. She reports it "just hurts" and rates the pain as a 6/ 10. This morning she had associated BL arm pain so she proceeded to the ED for further evaluation. By the time she arrived the pain had resolved and she is resting comfortably. She reports a chronic cough over the last year with worsening clear sputum production. She reports pain under her ribs. She denies fevers, chills, URI symptoms, chest pain, SOB, palpitations, nausea, vomiting, diarrhea, dysuria, calf pain, edema, dizziness, diaphoresis, syncope. She takes aspirin daily. She took all of her medications this morning. She denies history of CAD. In the ED VS are stable, EKG is nonischemic, CXR is negative. Troponin is 0.5. She received aspirin and is resting comfortably. She will be observed for further workup and treatment. Physical Exam (per Admitting): General Appearance: + pertinent finding Head: normocephalic, atraumatic Eyes: PERRL, EOMI, sclerae normal ENT: hearing grossly normal, pharynx normal Neck: no adenopathy, no JVD Respiratory/Chest: chest non-tender, lungs clear, normal breath sounds, no respiratory distress, no accessory muscle use Cardiovascular: regular rate, rhythm, no edema, no gallop, no JVD, no murmur , normal peripheral pulses Abdomen/GI: normal bowel sounds, non tender, soft Back: normal inspection, no CVA tenderness, no muscle spasm, normal range of motion Extremities/Musculoskelatal: no calf tenderness, normal capillary refill, no pedal edema Neurologic/Psych: alert, oriented x 3, + pertinent finding Skin: normal color, warm/dry, no rash Lymphatic: no adenopathy Hospital Course Paroxysmal Afib with RVR: Presents with pain between shoulders radiating to bilateral arms: likely musculoskeletal No known history of afib Elevated troponin likely secondary to Afib Continue amiodarone 200mg BID for 5 days and the once a day Metoprolol discontinued secondary to bradycardia S/P IV heparin, on Coumadin INR:3.6, monitor INR DC Heparin, hold Coumadin today EKG: No signs of ischemia ECHO: small to moderate loculated anterior and right lateral pericardial effusion, Normal LV function, Normal wall motion CT angiogram: No aortic dissection/PE but has severe CAD Appreciate Cardiology input ELEVATED TROPONIN CT angio: Severe CAD Troponin 0.568, 0.58, 0.53 EKG No signs of Ischemia ECHO: No wall motion abnormality Continue Aspirin, Lipitor, BB Cardiology on board UTI Urine culture:K.pneumoniae Continue IV ceftriaxone S/P # 3 >> switch to PO antibiotics based on sensitivities Positive Influenza A: Continue Tamiflu # 3/5 for 5 days DM II Hold glipizide A1c:7.1 ISS, accu checks while hospitalized HTN stable continue Losartan, felodipine Monitor CKD III Cr stable Monitor renal function Avoid nephrotoxic agents as able GERD continue PPI DVT PX: On IV heparin, INR therapeutic CODE STATUS: FULL CODE DISPOSITION: Plan to discharge home today Follow up with on 12/08/16 at 9:30AM Follow up with cardiology for in 1 week (Office will call and notify the appointment) Follow up with Coumadin clinic on 12/06/16 to get PT/INR test and for further coumadin dosage instructions. No do not take coumadin today (12/05/16) Complete the antibiotic course as prescribed Take amiodarone 200mg Twice a day for 5 days and then once a day Seek immediate medical attention if your symptoms reoccur or worsen PROCEDURES: ECHO: * The left ventricular wall motion is normal. * The left ventricular cavity is small. * There is severe concentric left ventricular hypertrophy. * The LV Ejection Fraction = 65-70%. * Grade I diastolic dysfunction, (abnormal relaxation pattern). * There is severe mitral annular calcification. * There is a small to moderate loculated anterior and right lateral pericardial effusion. * There is no echocardiographic evidence of tamponade. Total time spent on discharge = 34 minutes This includes examination of the patient, discharge planning, medication reconciliation, and communication with other providers. Discharge Instructions Discharge Instructions Date of Service Dec 05, 2016. Admission Reason for Admission: Elevated Troponin Discharge Discharge Diagnosis / Problem: Afib, UTI, Influenza A Discharge Goals Goal(s): Decrease discomfort, Improve function Activity Recommendations Activity Limitations: resume your previous activity Exercise/Sports Limitations: as tolerated . Instructions / Follow-Up Instructions / Follow-Up Follow up with on 12/08/16 at 9:30AM Follow up with cardiology for in 1 week (Office will call and notify the appointment) Follow up with Coumadin clinic on 12/06/16 to get PT/INR test and for further coumadin dosage instructions. No do not take coumadin today (12/05/16) Take amiodarone 200mg Twice a day for 5 days and then once a day Complete the antibiotic course as prescribed Seek immediate medical attention if your symptoms reoccur or worsen Current Hospital Diet Patient's current hospital diet: AHA Diet (Heart Healthy), Diabetes Type 2 Diet Discharge Diet Recommended Diet: Diabetes Type 2 Diet Pending Studies Studies pending at discharge: no Laboratory Results Hemoglobin A1c Test 12/02/16 06:10 Range/Units Estimated Average Glucose 157 mg/dl Hemoglobin A1c 7.1 H 4.5-5.6 % Lipid Panel Test 12/02/16 06:10 Range/Units Triglycerides Level 126 0-150 mg/dl Cholesterol Level 154 0-200 mg/dl HDL Cholesterol 48 mg/dl Cholesterol/HDL Ratio 3.2 LDL Cholesterol, Calculated 81 mg/dl Medical Emergencies . Who to Call and When: Medical Emergencies: If at any time you feel your situation is an emergency, please call 911 immediately. . Non-Emergent Contact Non-Emergency issues call your: Primary Care Provider, Service Developer Call Non-Emergent contact if: you have a fever, your pain is not controlled, your pain is worsening, your pain is unusual for you, you have any medication questions . . "Provider Documentation" section prepared by Rodolfo Kemp. VTE Core Measure Inpt VTE Proph given/why not?: Unfractionated heparin SQ, Warfarin (Coumadin)
--- NOTE | 2016-12-05 09:57 | Cardiology Follow-Up ---
Subjective General Date of Service: Dec 05, 2016. Chief Complaint: follow up elevated troponin, new AF Pt evaluation today including: conversation w/ patient, conversation w/ family , physical exam, chart review, lab review, review of studies, review of inpatient medication list History of Present Illness The patient is a 81 year old female seen in follow up. Sinus rhythm on telemetry. Denies chest discomfort or palpitations. No lightheadedness or dizziness. cough improving. Requesting discharge. Allergies Coded Allergies: Influenza Vaccine Live (Verified Allergy, Unknown, RASH, 12/01/16) Social History Smoking Status: Never Smoker Hx Tobacco Use In Past Year?: No Hx Alcohol Use - Type And Amou: No Hx Substance Use - Type And Am: No Problem List Medical Problems: (1) Back pain Status: Acute (2) Non-ST elevation MA (NSTEMI) Status: Acute Review of Systems Respiratory: + cough, No dyspnea at rest, No dyspnea on exertion, No hemoptysis , No shortness of breath, No sputum, No wheezing Cardiac: No PND, No chest pain, No claudication, No edema, No orthopnea, No palpitations Physical Exam Vital Signs Last Vital Signs Documentation Date Time Temp Pulse Resp B/P Pulse Ox O2 Delivery O2 Flow Rate FiO2 12/05/16 08:32 36.7 90 18 120/68 94 Room Air Physical Exam Constitutional: Level of Distress: NAD Head: normocephalic, atraumatic ENMT: normal ENT inspection Neck: supple Lungs: Auscultation: no wheezing, no rales/crackles Cardiovascular: Heart Auscultation: RRR, normal S1, normal S2, no murmurs Peripheral Pulses: Radial Pulse: normal on the left, normal on the right Abdomen: Inspection & Palpation: soft, non-distended, no tenderness, guarding & rebound Extremities: no edema, no clubbing, no ulcers Neurologic: Gait & Station: pertinent finding (no focal neuro deficits ) Cranial Nerves: grossly intact Assessment and Plan Assessment and Plan Impression: 1. Paroxysmal atrial fibrillation with RVR with subsequent conversion to sinus rhythm. - currently sinus rhythm - INR 3.6 2. Chronic right bundle branch block 3. Severe concentric left ventricular hypertrophy with hyperdynamic LV function - BP controlled 4. Small loculated pericardial effusion 5. +Klebsiella UTI 6. + Influenza A Discussion/recommendations: Continue oral amiodarone 200mg BID x 7days then reduce to 200mg daily. Discontinue IV heparin. Hold coumadin today. Repeat INR tomorrow via [facility]. Patient may be discharged from a cardiovascular perspective. I will schedule cardiology follow up at [facility] in 2 weeks. Laboratory Results Last 24 Hours Test 12/04/16 10:59 12/04/16 14:11 12/04/16 16:26 12/04/16 20:21 Bedside Glucose 122 mg/dl 103 mg/dl 166 mg/dl Activated Partial Thromboplast Time 57.6 SECONDS Partial Thromboplastin Ratio 2.2 Test 12/05/16 05:33 12/05/16 06:43 White Blood Count 2.80 K/uL Red Blood Count 4.63 M/uL Hemoglobin 13.3 g/dL Hematocrit 38.9 % Mean Corpuscular Volume 84.0 fL Mean Corpuscular Hemoglobin 28.7 pg Mean Corpuscular Hemoglobin Concent 34.2 g/dl Platelet Count 171 K/uL Mean Platelet Volume 10.0 fL Neutrophils (%) (Auto) 52.4 % Lymphocytes (%) (Auto) 33.6 % Monocytes (%) (Auto) 11.8 % Eosinophils (%) (Auto) 1.4 % Basophils (%) (Auto) 0.4 % Neutrophils # (Auto) 1.47 K/uL Lymphocytes # (Auto) 0.94 K/uL Monocytes # (Auto) 0.33 K/uL Eosinophils # (Auto) 0.04 K/uL Basophils # (Auto) 0.01 K/uL RDW Standard Deviation 40.6 fL RDW Coefficient of Variation 13.3 % Immature Granulocyte % (Auto) 0.4 % Immature Granulocyte # (Auto) 0.01 K/uL Prothrombin Time 40.8 SECONDS Prothromb Time International Ratio 3.6 Activated Partial Thromboplast Time 60.0 SECONDS Partial Thromboplastin Ratio 2.3 Sodium Level 138 mmol/L Potassium Level 4.7 mmol/L Chloride Level 101 mmol/L Carbon Dioxide Level 29 mmol/L Anion Gap 8.0 mmol/L Blood Urea Nitrogen 12 mg/dl Creatinine 0.85 mg/dl Est Creatinine Clear Calc Drug Dose 40.5 ml/min Estimated GFR () 75.5 Estimated GFR (Non- 65.2 BUN/Creatinine Ratio 14.3 Random Glucose 115 mg/dl Calcium Level 8.2 mg/dl Bedside Glucose 100 mg/dl
[2016-12-05 11:04] VITALS: BP 120/68; PULSE 90; TEMP 36.7; O2SAT 94
[2016-12-05] MEDS: PANTOprazole SOD 40 MG TAB PO SCH (11:13)
== END 2016-12-05 12:14 | disposition home or self-care (01) | DRG 309 ==
LOC: ENRESERVDT → ENRESERVTM → C.EDB 08:02 → C.2T 10:55 → OBSVTOIN 12-02 10:01
PROVIDERS: ADMIT Internal Medicine; ATTEND Internal Medicine
DX: I48.91 Unspecified atrial fibrillation (principal); N39.0 Urinary tract infection, site not specified; J11.1 Influenza due to unidentified influenza virus with other respiratory manifestations; E11.9 Type 2 diabetes mellitus without complications; I12.9 Hypertensive chronic kidney disease with stage 1 through stage 4 chronic kidney disease, or unspecified chronic kidney disease; N18.3 Chronic kidney disease, stage 3 (moderate); B96.1 Klebsiella pneumoniae [K. pneumoniae] as the cause of diseases classified elsewhere; K21.9 Gastro-esophageal reflux disease without esophagitis; I25.10 Atherosclerotic heart disease of native coronary artery without angina pectoris; Z82.49 Family history of ischemic heart disease and other diseases of the circulatory system; Z83.41 Family history of multiple endocrine neoplasia [MEN] syndrome; Z79.82 Long term (current) use of aspirin

== ENCOUNTER 2016-12-07 13:20 | Emergency (ER) | payer OTHER ==
[~2016-12-07] VITALS: Ht 154.9 cm; Wt 52.0 kg
[~2016-12-07 13:20] MED LIST changes: +CFT250 PO; +CHOL1000 PO; -CINN1CAP2 PO; +CRD200 PO; +FELO5TAB PO; +OMEP20CA9 PO; -PLN/10 PO; +TMF75 PO; +WARF1TAB PO
[2016-12-07 13:26] VITALS: TEMP 36.7; Ht 154.9 cm; Wt 52.0 kg
[2016-12-07 13:43] VITALS: O2SAT 96
--- NOTE | 2016-12-07 13:46 | EMERGENCY ROOM VISIT NOTE ---
History Report prepared by [place]: Bettina Magdaleno Under the Supervision of: Dr. Coleman Davalos M.D. First contact with patient: 13:33 Chief Complaint: SYNCOPE Stated Complaint: SYNCOPE, NAUSEA History of Present Illness The patient is a 81 year old female who presents to the Emergency Room with complaints of two sudden episodes of syncope that occurred prior to arrival. Per the patient's , the patient was recently evaluated in the hospital for atrial fibrillation. The patient notes that upon discharge, the patient was instructed to not take her Coumadin for a few days due to her INR levels. The patient's states that the patient did hit her head during the loss of consciousness. The patient states that she felt lightheaded prior to the syncopal episodes. She states that she has been keeping up on her fluid intake. The patient's notes that the patient's blood pressure was 135/ 67 mmHg and her blood glucose was 132 mg/dL. Source of History: patient, spouse/significant other () Onset: prior to arrival Position: other (global) Quality: other (episodes of syncope) Timing: other (sudden) Associated Symptoms: + LOC Note: Associated Symptoms: lightheadedness Review of Systems See HPI for pertinent positives & negatives. A total of 10 systems reviewed and were otherwise negative. Please see sheet from patient's recent evaluation in the hospital Past Medical & Surgical Medical Problems: (1) Benign hypertension (2) CKD (chronic kidney disease), stage III (3) Diabetes mellitus type 2 (4) GERD (gastroesophageal reflux disease) Surgical Problems: (1) H/O colonoscopy (2) H/O wisdom tooth extraction (3) History of tonsillectomy Family History FH: cancer FH: heart disease FH: multiple endocrine neoplasia (MEN) syndrome Social History Smoking Status: Never Smoker Alcohol Use: none Drug Use: none Marital Status: Housing Status: lives with family Occupation Status: retired Current/Historical Medications Scheduled Amiodarone HCl (Amiodarone HCl), 200 MG PO UD Aspirin (Aspir-81), 81 MG PO DAILY Cefuroxime Axetil (Cefuroxime Axetil), 250 MG PO BID Cholecalciferol (Vitamin D3), 1 TAB PO DAILY Cyanocobalamin (Vitamin B-12), 2,000 MCG PO DAILY Felodipine (Plendil Er), 1 TAB PO DAILY Glipizide (Glipizide Er), 5 MG PO DAILY Hydrochlorothiazide (Hydrochlorothiazide), 12.5 MG PO DAILY Losartan Potassium (Cozaar), 25 MG PO DAILY Omeprazole (Prilosec), 20 MG PO DAILY Oseltamivir Phosphate (Tamiflu), 75 MG PO BID Vitamin B Complex (Vitamin B Complex), 1 TABLET PO DAILY Warfarin Sodium (Coumadin), 1 TAB PO UD Allergies Coded Allergies: Influenza Vaccine Live (Verified Allergy, Unknown, RASH, 12/07/16) Physical Exam Vital Signs Date Time Temp Pulse Resp B/P Pulse Ox O2 Delivery O2 Flow Rate FiO2 12/07/16 17:04 69 16 172/72 98 12/07/16 15:04 76 16 140/60 99 Room Air 12/07/16 14:04 66 140/60 75 139/75 74 142/78 12/07/16 13:43 96 Room Air 12/07/16 13:38 66 12/07/16 13:26 36.7 72 16 158/66 96 Room Air Physical Exam GENERAL: Patient awake, alert, oriented x 3. Patient follows commands. Patient does not appear toxic. Patient is adequately hydrated and well- nourished. SKIN: No erythema, pallor, cyanosis or rash HEENT: Normal head, pupils equal, reactive to light and accommodation. Oral cavity and posterior pharynx appear normal. Neck: Without adenopathy, no neck vein distention. LUNGS: Clear to auscultation. No wheezes, no rales, no rhonchi. HEART: Grade 3/6 systolic murmur. No gallops. No rubs ABDOMEN: No masses, no rebound, no hepatomegaly or splenomegaly. EXTREMITIES: Ecchymosis on right and left forearms from previous IV stick. No pedal or pretibial edema. No calf or thigh tenderness. NEUROLOGIC: Cranial nerves II-XII within normal limits. No gross motor sensory function deficits. Medical Decision & Procedures ER Provider Diagnostic Interpretation: Radiology results as stated below per my review and radiologist interpretation: CT HEAD WITHOUT CONTRAST (CT) CLINICAL HISTORY: Head trauma. Patient on Coumadin. COMPARISON STUDY: No previous studies for comparison. TECHNIQUE: Axial CT of the brain is performed from the vertex to the skull base. IV contrast was not administered for this examination. CT DOSE: 537.48 mGy.cm FINDINGS: No intra or extra-axial mass lesions are visualized. There is no CT evidence of acute cortical infarction. There is no evidence of midline shift. There is no acute hemorrhage. No calvarial fractures are visualized. There are minimal white matter hypodensities likely on a small vessel basis. There is no evidence of pathologic ventricular dilatation. There is mild bilateral maxilla sinus mucosal thickening. There is near complete opacification sphenoid. There is mild ethmoid because of thickening. IMPRESSION: Inflammatory changes within the paranasal sinuses. Otherwise normal noncontrast head CT for age Electronically signed by: Ta Dubose M.D. 12/07/2016 2:28 PM Dictated Date/Time: 12/07/2016 2:27 PM CHEST ONE VIEW PORTABLE CLINICAL HISTORY: syncope NAUSEA COMPARISON STUDY: 12/01/2016 FINDINGS: The cardiac and mediastinal contours are normal. There is no evidence of focal pulmonary consolidation. There is no evidence of failure. No pleural effusions are visualized.[ IMPRESSION: No active disease in the chest. Electronically signed by: Ta Dubose M.D. 12/07/2016 1:54 PM Dictated Date/Time: 12/07/2016 1:54 PM Laboratory Results 12/07/16 13:40 Red Blood Count 4.74, Mean Corpuscular Volume 85.2, Mean Corpuscular Hemoglobin 29.5, Mean Corpuscular Hemoglobin Concent 34.7, Mean Platelet Volume 10.2, Neutrophils (%) (Auto) 66.0, Lymphocytes (%) (Auto) 24.5, Monocytes (%) (Auto) 7.4, Eosinophils (%) (Auto) 1.2, Basophils (%) (Auto) 0.2, Neutrophils # (Auto) 2.75, Lymphocytes # (Auto) 1.02, Monocytes # (Auto) 0.31, Eosinophils # (Auto) 0.05, Basophils # (Auto) 0.01 12/07/16 13:40 Test 12/07/16 13:40 12/07/16 15:00 White Blood Count 4.17 K/uL (4.8-10.8) Red Blood Count 4.74 M/uL (4.2-5.4) Hemoglobin 14.0 g/dL (12.0-16.0) Hematocrit 40.4 % (37-47) Mean Corpuscular Volume 85.2 fL (80-100) Mean Corpuscular Hemoglobin 29.5 pg (25-34) Mean Corpuscular Hemoglobin Concent 34.7 g/dl (32-36) Platelet Count 199 K/uL (130-400) Mean Platelet Volume 10.2 fL (7.4-10.4) Neutrophils (%) (Auto) 66.0 % Lymphocytes (%) (Auto) 24.5 % Monocytes (%) (Auto) 7.4 % Eosinophils (%) (Auto) 1.2 % Basophils (%) (Auto) 0.2 % Neutrophils # (Auto) 2.75 K/uL (1.4-6.5) Lymphocytes # (Auto) 1.02 K/uL (1.2-3.4) Monocytes # (Auto) 0.31 K/uL (0.11-0.59) Eosinophils # (Auto) 0.05 K/uL (0-0.5) Basophils # (Auto) 0.01 K/uL (0-0.2) RDW Standard Deviation 41.2 fL (36.4-46.3) RDW Coefficient of Variation 13.1 % (11.5-14.5) Immature Granulocyte % (Auto) 0.7 % Immature Granulocyte # (Auto) 0.03 K/uL (0.00-0.02) Prothrombin Time 42.3 SECONDS (9.0-12.0) Prothromb Time International Ratio 3.7 (0.9-1.1) Anion Gap 6.0 mmol/L (3-11) Est Creatinine Clear Calc Drug Dose 40.9 ml/min Estimated GFR () 76.6 Estimated GFR (Non- 66.1 BUN/Creatinine Ratio 14.4 (10-20) Calcium Level 8.6 mg/dl (8.5-10.1) Total Bilirubin 0.6 mg/dl (0.2-1) Aspartate Amino Transf (AST/SGOT) 156 U/L (15-37) Alanine Aminotransferase (ALT/SGPT) 140 U/L (12-78) Alkaline Phosphatase 100 U/L (45-117) Troponin I 0.043 ng/ml (0-0.045) Total Protein 7.1 gm/dl (6.4-8.2) Albumin 3.6 gm/dl (3.4-5.0) Globulin 3.5 gm/dl (2.5-4.0) Albumin/Globulin Ratio 1.0 (0.9-2) Urine Color YELLOW Urine Appearance CLEAR (CLEAR) Urine pH 7.0 (4.5-7.5) Urine Specific [place] 1.012 (1.000-1.030) Urine Protein NEG (NEG) Urine Glucose (UA) TRACE (NEG) Urine Ketones 1+ (NEG) Urine Occult Blood NEG (NEG) Urine Nitrite NEG (NEG) Urine Bilirubin NEG (NEG) Urine Urobilinogen NEG (NEG) Urine Leukocyte Esterase NEG (NEG) Laboratory results as stated above per my review. ECG Indication: syncope, other (history of atrial fibrillation) Rate (beats per minute): 62 Rhythm: sinus rhythm Findings: RBBB, no acute ischemic change, no ectopy ED Course 1333: Past medical records reviewed. The patient was evaluated in room A2. A complete history and physical examination was performed. 1607: I reevaluated the patient and she is resting comfortably. I discussed the exam findings with her and I discussed the treatment plan. She verbalized complete understanding and agreement. She is going to go home after she has her orthostatic vital signs recorded. 1627: I reevaluated the patient and she is doing well. She is ready to go home. Medical Decision History Nurses notes reviewed. Medical history sheet reviewed. Differential diagnosis includes but is not limited to: vasovagal syncope, dehydration, metabolic disorder, closed head injury, arrhythmia. The patient is here after 2 syncopal episodes earlier today. She was just recently discharged from the hospital after full cardiothoracic workup. She was also diagnosed with influenza A. She has been having some nausea. Multiple labs and urinalysis were obtained today. Please see above. The patient is slightly hyponatremic. She has elevation of her transaminases which may be related to the amiodarone or her recent influenza. Her white count is not elevated. She is not anemic. Electrolytes appear within normal range. The patient's INR is still elevated. The patient is not orthostatic. The patient was able to walk to the ED without difficulty. The patient will be allowed to return home but will be encouraged to get as much rest as possible. She was also encouraged to drink extra fluids. Liver enzymes will need to be repeated. Impression Primary Impression: Vasovagal syncope Additional Impressions: Dehydration Hyponatremia Transaminasemia Influenza A Scribe Attestation The scribe's documentation has been prepared under my direction and personally reviewed by me in its entirety. I confirm that the note above accurately reflects all work, treatment, procedures, and medical decision making performed by me. Departure Information Dispostion Home / Self-Care Referrals Mary Oneill M.D. (PCP) Milton Fernández D.O. Kopinski, Thomas O., DO Forms HOME CARE DOCUMENTATION FORM, IMPORTANT VISIT INFORMATION Patient Instructions My [facility] Additional Instructions REST Drink extra fluids. Continue all of your current medications as prescribed. Follow-up with your family physician within the next 7 days. Do not restart Coumadin until cleared by the Coumadin clinic. Your liver enzymes should be rechecked within a week. Problem Qualifiers
[2016-12-07 13:55] LABS: BASO % 0.2 %; BASO ABS # 0.01 K/uL (0-0.2); COMPLETE YES; EOS % 1.2 %; HEMATOCRIT 40.4 % (37-47); IG% 0.7 %; LYMPH % 24.5 %; LYMPH ABS # 1.02 K/uL (1.2-3.4); MEAN CELL VOLUME 85.2 fL (80-100); MEAN CORPUSCULAR HEMOGLOBIN 29.5 pg (25-34); MEAN CORPUSCULAR HGB CONC 34.7 g/dl (32-36); MEAN PLATELET VOLUME 10.2 fL (7.4-10.4); MONO % 7.4 %; PLATELET COUNT 199 K/uL (130-400); RED BLOOD COUNT 4.74 M/uL (4.2-5.4); WHITE BLOOD COUNT 4.17 K/uL (4.8-10.8)
--- NOTE | 2016-12-07 13:55 | DIAGNOSTIC IMAGING REPORT ---
CHEST ONE VIEW PORTABLE CLINICAL HISTORY: syncope NAUSEA COMPARISON STUDY: 12/01/2016 FINDINGS: The cardiac and mediastinal contours are normal. There is no evidence of focal pulmonary consolidation. There is no evidence of failure. No pleural effusions are visualized.[ IMPRESSION: No active disease in the chest. Electronically signed by: Ta Dubose M.D. 12/07/2016 1:54 PM Dictated Date/Time: 12/07/2016 1:54 PM
[2016-12-07 14:13] LABS: PROTHROMBIN TIME (PATIENT) 42.3 SECONDS (9.0-12.0)
[2016-12-07 14:14] LABS: INR 3.7 (0.9-1.1)
[2016-12-07 14:15] LABS: BUN/CREATININE RATIO 14.4 (10-20); CALCIUM 8.6 mg/dl (8.5-10.1); CREATININE 0.84 mg/dl (0.60-1.20); POTASSIUM 4.2 mmol/L (3.5-5.1)
--- NOTE | 2016-12-07 14:30 | DIAGNOSTIC IMAGING REPORT ---
CT HEAD WITHOUT CONTRAST (CT) CLINICAL HISTORY: Head trauma. Patient on Coumadin. COMPARISON STUDY: No previous studies for comparison. TECHNIQUE: Axial CT of the brain is performed from the vertex to the skull base. IV contrast was not administered for this examination. CT DOSE: 537.48 mGy.cm FINDINGS: No intra or extra-axial mass lesions are visualized. There is no CT evidence of acute cortical infarction. There is no evidence of midline shift. There is no acute hemorrhage. No calvarial fractures are visualized. There are minimal white matter hypodensities likely on a small vessel basis. There is no evidence of pathologic ventricular dilatation. There is mild bilateral maxilla sinus mucosal thickening. There is near complete opacification sphenoid. There is mild ethmoid because of thickening. IMPRESSION: Inflammatory changes within the paranasal sinuses. Otherwise normal noncontrast head CT for age Electronically signed by: Ta Dubose M.D. 12/07/2016 2:28 PM Dictated Date/Time: 12/07/2016 2:27 PM
[2016-12-07 15:11] LABS: URINE APPEARANCE CLEAR (CLEAR); URINE BILIRUBIN NEG (NEG); URINE COLOR YELLOW; URINE NITRITE NEG (NEG); URINE SPECIFIC GRAVITY 1.012 (1.000-1.030); UROBILINOGEN NEG (NEG); ZZURINE CULT IF INDIC CATH NO
[2016-12-07 15:16] LABS: MANUAL MICROSCOPIC REQUIRED? NO; REVIEW REQ? NO
[2016-12-07 17:04] VITALS: BP 172/72; PULSE 69; O2SAT 98
== END 2016-12-07 17:07 | disposition home or self-care (01) ==
LOC: EDBD 13:20 → C.EDA 13:23
DX: R55 Syncope and collapse (principal); E86.0 Dehydration; E87.1 Hypo-osmolality and hyponatremia; R74.0 Nonspecific elevation of levels of transaminase and lactic acid dehydrogenase [LDH]; J11.1 Influenza due to unidentified influenza virus with other respiratory manifestations; I10 Essential (primary) hypertension; N18.3 Chronic kidney disease, stage 3 (moderate); E11.9 Type 2 diabetes mellitus without complications; K21.9 Gastro-esophageal reflux disease without esophagitis; Z79.82 Long term (current) use of aspirin